=== PATIENT | female | born 1990 | race Caucasian/White ===

== ENCOUNTER 2016-10-27 08:18 | Emergency (ER) | payer MEDICAID ==
[2016-10-27 08:34] LABS: Glucose,Whole Blood 94 mg/dL (75-99)
[2016-10-27] MEDS ORDERED: SODIUM CHLORIDE 0.9% 1,000 ML IV STA (08:43)
--- NOTE | 2016-10-27 08:57 | ED ---
General Adult HPI - General Chief complaint: Urogenital Stated complaint: back pain, nausea Time Seen by Provider: 10/27/16 08:38 Source: patient, RN notes reviewed Mode of arrival: ambulatory Limitations: no limitations - History of Present Illness Initial comments: Patient is a 26-year-old female who presents emergency room today with a chief complaint of hematuria. She does admit that she noticed small amount yesterday. States that she has had increased bleeding today's had a wear a pad. States she went to urgent care today urinalysis and was advised coming here to the emergency room for further evaluation. She does admit that she's felt somewhat lightheaded dizzy at times. She denies any other complaints or symptoms. Patient denies any recent fever, chills, shortness of breath, chest pain, back pain, abdominal pain, nausea or vomiting, numbness or tingling, dysuria, constipation or diarrhea, headaches or visual changes, or any other complaints. Review of Systems ROS Statement: Those systems with pertinent positive or pertinent negative responses have been documented in the HPI. ROS Other: All systems not noted in ROS Statement are negative. Past Medical History History of Any Multi-Drug Resistant Organisms: None Reported Past Surgical History: Back Surgery Past Psychological History: No Psychological Hx Reported Smoking Status: Never smoker Past Alcohol Use History: None Reported Past Drug Use History: None Reported General Exam - General Exam Comments Initial Comments: General: The patient is awake and alert, in no distress, and does not appear acutely ill. Eye: Pupils are equal, round and reactive to light, extra-ocular movements are intact. No nystagmus. There is normal conjunctiva bilaterally. No signs of icterus. Ears, nose, mouth and throat: There are moist mucous membranes and no oral lesions. Neck: The neck is supple, there is no tenderness or JVD. Cardiovascular: There is a regular rate and rhythm. No murmur, rub or gallop is appreciated. Respiratory: Lungs are clear to auscultation, respirations are non-labored, breath sounds are equal. No wheezes, stridor, rales, or rhonchi. Gastrointestinal: Soft, non-distended, non-tender abdomen without masses or organomegaly noted. There is no rebound or guarding present. No CVA tenderness. Bowel sounds are unremarkable. Musculoskeletal: Normal ROM, no tenderness. Strength 5/5. Sensation intact. Pulses equal bilaterally 2+. Neurological: A&O x 3. CN II-XII intact, There are no obvious motor or sensory deficits. Coordination appears grossly intact. Speech is normal. Skin: Skin is warm and dry and no rashes or lesions are noted. Psychiatric: Cooperative, appropriate mood & affect, normal judgment. Limitations: no limitations Course Vital Signs 10/27/16 08:26 Temperature 97.8 F Pulse Rate 67 Respiratory 18 Rate Blood Pressure 139/79 O2 Sat by Pulse 100 Oximetry Medical Decision Making - Medical Decision Making Patient's urinalysis reviewed and does show 6 red cells no sign of infection. Negative test. Blood work unremarkable. Stable hemoglobin. Patient does admit to noticing some hematuria starting yesterday. Ultrasound performed of the kidneys bladder is unremarkable. Results were discussed the patient. Patient advised to follow-up with urologist. She admits that over the last month and a half she's had some increased frequency. Advised to return if any symptoms increase or worsen or for any other concerns. - Lab Data Result diagrams: 10/27/16 08:55 10/27/16 08:55 Lab Results 10/27/16 10/27/16 10/27/16 Range/Units 08:33 08:50 08:50 WBC (3.8-10.6) k/uL RBC (3.80-5.40) m/uL Hgb (11.4-16.0) gm/dL Hct (34.0-46.0) % MCV (80.0-100.0) fL MCH (25.0-35.0) pg MCHC (31.0-37.0) g/dL RDW (11.5-15.5) % Plt Count (150-450) k/uL Neutrophils % % Lymphocytes % % Monocytes % % Eosinophils % % Basophils % % Neutrophils # (1.3-7.7) k/uL Lymphocytes # (1.0-4.8) k/uL Monocytes # (0-1.0) k/uL Eosinophils # (0-0.7) k/uL Basophils # (0-0.2) k/uL Differential Comment Manual Slide Review RBC Morphology Sodium (137-145) mmol/L Potassium (3.5-5.1) mmol/L Chloride (98-107) mmol/L Carbon Dioxide (22-30) mmol/L Anion Gap mmol/L BUN (7-17) mg/dL Creatinine (0.52-1.04) mg/dL Est GFR (MDRD) Af Amer (>60 ml/min/1.73 sqM) Est GFR (MDRD) Non-Af (>60 ml/min/1.73 sqM) Glucose (74-99) mg/dL POC Glucose (mg/dL) 94 (75-99) mg/dL POC Glu Clinical Science Liaison ID PetitMarry santa Calcium (8.4-10.2) mg/dL Total Bilirubin (0.2-1.3) mg/dL AST (14-36) U/L ALT (9-52) U/L Alkaline Phosphatase (38-126) U/L Total Protein (6.3-8.2) g/dL Albumin (3.5-5.0) g/dL Urine Color Colorless Urine Appearance Clear (Clear) Urine pH 5.5 (5.0-8.0) Ur Specific [place] 1.004 (1.001-1.035) Urine Protein Negative (Negative) Urine Glucose (UA) Negative (Negative) Urine Ketones Negative (Negative) Urine Blood Moderate H (Negative) Urine Nitrite Negative (Negative) Urine Bilirubin Negative (Negative) Urine Urobilinogen <2.0 (<2.0) mg/dL Ur Leukocyte Esterase Negative (Negative) Urine RBC 6 H (0-5) /hpf Urine WBC <1 (0-5) /hpf Ur Squamous Epith Cells 1 (0-4) /hpf Urine Bacteria Rare H (None) /hpf Urine Mucus Rare H (None) /hpf Urine HCG, Qual Not Detected (Not Detectd) 10/27/16 10/27/16 Range/Units 08:55 08:55 WBC 5.3 (3.8-10.6) k/uL RBC 4.66 (3.80-5.40) m/uL Hgb 14.2 (11.4-16.0) gm/dL Hct 41.9 (34.0-46.0) % MCV 89.8 (80.0-100.0) fL MCH 30.5 (25.0-35.0) pg MCHC 34.0 (31.0-37.0) g/dL RDW 12.7 (11.5-15.5) % Plt Count 210 (150-450) k/uL Neutrophils % 36 % Lymphocytes % 54 % Monocytes % 5 % Eosinophils % 2 % Basophils % 1 % Neutrophils # 1.9 (1.3-7.7) k/uL Lymphocytes # 2.8 (1.0-4.8) k/uL Monocytes # 0.3 (0-1.0) k/uL Eosinophils # 0.1 (0-0.7) k/uL Basophils # 0.1 (0-0.2) k/uL Differential Comment Manual Slide Review Performed RBC Morphology Normal Sodium 142 (137-145) mmol/L Potassium 3.9 (3.5-5.1) mmol/L Chloride 106 (98-107) mmol/L Carbon Dioxide 26 (22-30) mmol/L Anion Gap 10 mmol/L BUN 14 (7-17) mg/dL Creatinine 0.71 (0.52-1.04) mg/dL Est GFR (MDRD) Af Amer >60 (>60 ml/min/1.73 sqM) Est GFR (MDRD) Non-Af >60 (>60 ml/min/1.73 sqM) Glucose 87 (74-99) mg/dL POC Glucose (mg/dL) (75-99) mg/dL POC Glu Clinical Science Liaison ID Calcium 9.5 (8.4-10.2) mg/dL Total Bilirubin 0.6 (0.2-1.3) mg/dL AST 62 H (14-36) U/L ALT 64 H (9-52) U/L Alkaline Phosphatase 56 (38-126) U/L Total Protein 7.8 (6.3-8.2) g/dL Albumin 4.5 (3.5-5.0) g/dL Urine Color Urine Appearance (Clear) Urine pH (5.0-8.0) Ur Specific [place] (1.001-1.035) Urine Protein (Negative) Urine Glucose (UA) (Negative) Urine Ketones (Negative) Urine Blood (Negative) Urine Nitrite (Negative) Urine Bilirubin (Negative) Urine Urobilinogen (<2.0) mg/dL Ur Leukocyte Esterase (Negative) Urine RBC (0-5) /hpf Urine WBC (0-5) /hpf Ur Squamous Epith Cells (0-4) /hpf Urine Bacteria (None) /hpf Urine Mucus (None) /hpf Urine HCG, Qual (Not Detectd) Disposition Clinical Impression: Hematuria Disposition: HOME SELF-CARE Condition: Good Instructions: Hematuria (ED) Additional Instructions: Please use medication as discussed. Please follow-up with urologist/family doctor in the next 2 days of symptoms have not improved. Please return to emergency room if the symptoms increase or worsen or for any other concerns. Referrals: Kimani Monsalve MD [Primary Care Provider] - 1-2 days Sacha Tellez MD [STAFF PHYSICIAN] - 1-2 days Time of Disposition: 10:12
[2016-10-27 09:03] LABS: Appearance,Urine Clear (Clear); Bacteria,Urine Rare /hpf; Bilirubin,Urine Negative (Negative); Glucose,Urine (UA) Negative (Negative); Ketones,Urine Negative (Negative); Leukocyte Esterase,Urine Negative (Negative); Mucus,Urine Rare /hpf; Nitrite,Urine Negative (Negative); PH, Urine 5.5 (5.0-8.0); Particle Count 1000; Protein,Urine Negative (Negative); RBC,Urine 6 /hpf (0-5); Specific Gravity,Urine 1.004 (1.001-1.035); Squamous Epithelial Cell,Urine 1 /hpf (0-4); UA Billing (MACRO vs. MICRO) MICRO; Urobilinogen,Urine <2.0 mg/dL (<2.0); WBC,Urine <1 /hpf (0-5)
[2016-10-27 09:08] LABS: Basophils # (A) 0.1 k/uL (0-0.2); Basophils % (A) 1 %; CH 31.1; CHCM 34.8; Eosinophils # (A) 0.1 k/uL (0-0.7); Eosinophils % (A) 2 %; HCT 41.9 % (34.0-46.0); HDW 2.33; HGB 14.2 gm/dL (11.4-16.0); Luc # (Auto) 0.13; Luc % (Auto) 2; Lymphocytes # (A) 2.8 k/uL (1.0-4.8); Lymphocytes % (A) 54 %; MCH 30.5 pg (25.0-35.0); MCV 89.8 fL (80.0-100.0); Mean Platelet Volume 7.2; Monocytes # (A) 0.3 k/uL (0-1.0); Monocytes % (A) 5 %; Neutrophils # (A) 1.9 k/uL (1.3-7.7); Neutrophils % (A) 36 %; RBC 4.66 m/uL (3.80-5.40); RDW 12.7 % (11.5-15.5); WBC 5.3 k/uL (3.8-10.6); WBC (Perox) 5.43
[2016-10-27 09:13] LABS: ALT 64 U/L (9-52); AST 62 U/L (14-36); Alkaline Phosphatase 56 U/L (38-126); Anion Gap 10 mmol/L; Blood Urea Nitrogen 14 mg/dL (7-17); Calcium 9.5 mg/dL (8.4-10.2); Carbon Dioxide 26 mmol/L (22-30); Chloride 106 mmol/L (98-107); Glucose 87 mg/dL (74-99); Non-African American GFR(MDRD) >60 (>60 ml/min/1.73 sqM); Potassium 3.9 mmol/L (3.5-5.1); Sodium 142 mmol/L (137-145); Total Bilirubin 0.6 mg/dL (0.2-1.3); Total Protein 7.8 g/dL (6.3-8.2)
[2016-10-27 09:25] LABS: Manual Review Performed
[2016-10-27 09:27] LABS: RBC Morphology Normal
--- NOTE | 2016-10-27 09:55 | US ---
EXAMINATION TYPE: US kidneys/renal and bladder DATE OF EXAM: 10/27/2016 COMPARISON: NONE CLINICAL HISTORY: Pain. Hematuria, urinary frequency EXAM MEASUREMENTS: Right Kidney: 10.5 x 4.1 x 3.7 cm Left Kidney: 10.6 x 4.9 x 4.5 cm Post Void Residual Volume: 32.5 mL Right Kidney: no evidence of hydronephrosis or mass Left Kidney: no evidence of hydronephrosis or mass Bladder: appears wnl Bilateral Jets seen: yes Normal Post Void Residual: yes There is no evidence for hydronephrosis at this point in time. No nephrolithiasis is seen. No jayleen s are identified. The urinary bladder is anechoic. Bilateral ureteral jets are seen on color Dopple r. No significant postvoid residual volume. Cortical medullary differentiation is maintained bilaterally . IMPRESSION: No significant abnormalities evident
[2016-10-27] MEDS ORDERED: ONDANSETRON 4 MG/2 ML VIAL IVP STA (10:11)
[2016-10-27 10:24] VITALS: BP 119/73; PULSE 56; RESP 16; TEMP 98.1
== END 2016-10-27 10:39 | disposition home or self-care (01) ==
LOC: EC 08:18
DX: R31.9 Hematuria, unspecified (principal); R42 Dizziness and giddiness; Z32.02 Encounter for pregnancy test, result negative
CPT/HCPCS: 36415; 93005; 80053; 85025; 81001; 81025; 87086; 76770; 99284; 96374; 96361; J2405

== ENCOUNTER 2017-08-08 08:39 | Emergency (ER) | payer MEDICAID ==
[2017-08-08 08:44] VITALS: PULSE 69
[2017-08-08] MEDS ORDERED: SODIUM CHLORIDE 0.9% 1,000 ML IV STA (09:04)
[2017-08-08] MEDS ORDERED: diphenhydrAMINE 50 MG/ML 1 ML VIAL IVP STA (09:04)
[2017-08-08] MEDS ORDERED: SODIUM CHLORIDE 0.9% 2,000 ML IV STA (09:04)
[2017-08-08] MEDS ORDERED: METOCLOPRAMIDE 5 MG/ML 2 ML VIAL IVP STA (09:04)
--- NOTE | 2017-08-08 09:11 | ED ---
Nausea/Vomiting/Diarrhea HPI - General Chief complaint: Nausea/Vomiting/Diarrhea Stated complaint: Vomiting Time Seen by Provider: 08/08/17 08:47 Source: patient, RN notes reviewed, old records reviewed Mode of arrival: ambulatory Limitations: no limitations - History of Present Illness Initial comments: This patient is a 26-year-old female chief complaint of nausea and vomiting for the past week. Patient is currently 8 weeks . She reports she's had an ultrasound to confirm a chain . She reports some mild epigastric pain due to the amount of vomiting. Patient reports no fever or chills. She states it was ensured able fasting. No changes in her bowel habits. Patient reports that she is feels very weak and dehydrated. She relates that she is unable to tolerate any fluids or food. She reports that she start PCP earlier in the week and was given Unisom and vitamin B6. Patient states that she can't even hold that down. Patient denies any other symptoms at this time. - Related Data Previous Rx's Medication Instructions Recorded Metoclopramide [Reglan] 5 mg PO ACHS #12 tab 08/08/17 Allergies Allergy/AdvReac Type Severity Reaction Status Date / Time clarithromycin [From Biaxin] Allergy Unknown Verified 08/08/17 10:45 pseudoephedrine Allergy Unknown Verified 08/08/17 10:45 [From Sudafed] Sulfa (Sulfonamide Allergy Unknown Verified 08/08/17 10:45 Antibiotics) Review of Systems ROS Statement: Those systems with pertinent positive or pertinent negative responses have been documented in the HPI. ROS Other: All systems not noted in ROS Statement are negative. Past Medical History Past Medical History: Asthma History of Any Multi-Drug Resistant Organisms: None Reported Past Surgical History: Back Surgery, Orthopedic Surgery Past Psychological History: No Psychological Hx Reported Smoking Status: Never smoker Past Alcohol Use History: None Reported Past Drug Use History: None Reported General Exam - General Exam Comments Initial Comments: This is a pleasant 26-year-old female. She did have one episode of vomiting while in the emergency department. Patient is alert and oriented. Does appear very tired and fatigued. Limitations: no limitations General appearance: alert, in no apparent distress Head exam: Present: atraumatic, normocephalic, normal inspection Eye exam: Present: normal appearance, PERRL, EOMI. Absent: scleral icterus, conjunctival injection, periorbital swelling ENT exam: Present: normal exam, mucous membranes dry, mucous membranes moist. Absent: normal oropharynx (Dry oropharynx) Neck exam: Present: normal inspection. Absent: tenderness, meningismus, lymphadenopathy Respiratory exam: Present: normal lung sounds bilaterally. Absent: respiratory distress, wheezes, rales, rhonchi, stridor Cardiovascular Exam: Present: regular rate, normal rhythm, normal heart sounds. Absent: systolic murmur, diastolic murmur, rubs, gallop, clicks GI/Abdominal exam: Present: soft, tenderness (epigastric), normal bowel sounds. Absent: distended, guarding, rebound, rigid Extremities exam: Present: normal inspection, full ROM, normal capillary refill. Absent: tenderness, pedal edema, joint swelling, calf tenderness Back exam: Present: normal inspection Neurological exam: Present: alert, oriented X3, CN II-XII intact Psychiatric exam: Present: normal affect, normal mood Skin exam: Present: warm, dry, intact, normal color. Absent: rash Course Vital Signs 08/08/17 08:42 Temperature 97.7 F Pulse Rate 69 Respiratory 20 Rate Blood Pressure 114/61 O2 Sat by Pulse 100 Oximetry Medical Decision Making - Medical Decision Making This patient is a pleasant 26-year-old female currently 8 weeks presents today with chief complaint of vomiting for the past 6 days. She states that she's not been able to tolerate her Unisom and vitamin B6 due to the amount of vomiting. She reports that she had a ultrasound which confirmed intrauterine . She denies any significant abdominal pain this time. She does report some epigastric tenderness due to the amount of vomiting. Patient otherwise denies any other symptoms. She was given 2 L of IV fluids and lab work obtained. Patient's labwork was reviewed and unremarkable. Ultrasound shows a viable IUP measuring 7 weeks and 3 days. She denies any vaginal bleeding or discharge. No cough pain process seen on the ultrasound. At this time I'll discharge the patient after receiving the liters of fluid with prescription for Reglan for nausea. Return to emergency department if any alarming signs or symptoms occur. All questions were answered and return parameters were discussed. - Lab Data Result diagrams: 08/08/17 09:29 08/08/17 09:29 Lab Results 08/08/17 08/08/17 08/08/17 Range/Units 09:29 09:29 10:15 WBC 7.5 (3.8-10.6) k/uL RBC 4.98 (3.80-5.40) m/uL Hgb 14.8 (11.4-16.0) gm/dL Hct 43.7 (34.0-46.0) % MCV 87.7 (80.0-100.0) fL MCH 29.7 (25.0-35.0) pg MCHC 33.8 (31.0-37.0) g/dL RDW 12.4 (11.5-15.5) % Plt Count 224 (150-450) k/uL Neutrophils % 75 % Lymphocytes % 17 % Monocytes % 5 % Eosinophils % 1 % Basophils % 0 % Neutrophils # 5.6 (1.3-7.7) k/uL Lymphocytes # 1.3 (1.0-4.8) k/uL Monocytes # 0.4 (0-1.0) k/uL Eosinophils # 0.1 (0-0.7) k/uL Basophils # 0.0 (0-0.2) k/uL Sodium 139 (137-145) mmol/L Potassium 4.0 (3.5-5.1) mmol/L Chloride 103 (98-107) mmol/L Carbon Dioxide 23 (22-30) mmol/L Anion Gap 13 mmol/L BUN 8 (7-17) mg/dL Creatinine 0.64 (0.52-1.04) mg/dL Est GFR (CKD-EPI)AfAm >90 (>60 ml/min/1.73 sqM) Est GFR (CKD-EPI)NonAf >90 (>60 ml/min/1.73 sqM) Glucose 86 (74-99) mg/dL Calcium 9.6 (8.4-10.2) mg/dL Total Bilirubin 0.8 (0.2-1.3) mg/dL AST 16 (14-36) U/L ALT 20 (9-52) U/L Alkaline Phosphatase 65 (38-126) U/L Total Protein 7.6 (6.3-8.2) g/dL Albumin 4.3 (3.5-5.0) g/dL Amylase 53 (30-110) U/L Lipase 47 (23-300) U/L Urine Color Yellow Urine Appearance Cloudy H (Clear) Urine pH 5.5 (5.0-8.0) Ur Specific [place] 1.013 (1.001-1.035) Urine Protein Negative (Negative) Urine Glucose (UA) Negative (Negative) Urine Ketones 2+ H (Negative) Urine Blood Negative (Negative) Urine Nitrite Negative (Negative) Urine Bilirubin Negative (Negative) Urine Urobilinogen <2.0 (<2.0) mg/dL Ur Leukocyte Esterase Large H (Negative) Urine RBC 2 (0-5) /hpf Urine WBC 14 H (0-5) /hpf Ur Squamous Epith Cells 3 (0-4) /hpf Urine Bacteria Rare H (None) /hpf Urine Mucus Occasional H (None) /hpf - Radiology Data Radiology results: report reviewed Single IUP gestation is confirmed. Martinez-rump length is 1.3 cm corresponding to 7 weeks and 3-day-old fetus. No EVIDENCE FOR COMPLICATIONS AT THIS TIME. Disposition Clinical Impression: Dehydration, Nausea/vomiting in Disposition: HOME SELF-CARE Condition: Good Instructions: Acute Nausea and Vomiting (ED) Additional Instructions: Patient denies to rest, increase her fluid intake. Take the medication as prescribed. Return to emergency department if any alarming signs or symptoms occur. Prescriptions: Metoclopramide [Reglan] 5 mg PO ACHS #12 tab Referrals: None,Stated [Primary Care Provider] - 1-2 days Time of Disposition: 11:36
[2017-08-08 09:40] LABS: Basophils % (A) 0 %; Eosinophils # (A) 0.1 k/uL (0-0.7); Eosinophils % (A) 1 %; HCT 43.7 % (34.0-46.0); HGB 14.8 gm/dL (11.4-16.0); Lymphocytes # (A) 1.3 k/uL (1.0-4.8); Lymphocytes % (A) 17 %; MCH 29.7 pg (25.0-35.0); MCHC 33.8 g/dL (31.0-37.0); MCV 87.7 fL (80.0-100.0); Mean Platelet Volume 7.7; Monocytes # (A) 0.4 k/uL (0-1.0); Monocytes % (A) 5 %; Neutrophils # (A) 5.6 k/uL (1.3-7.7); Neutrophils % (A) 75 %; Platelet Count 224 k/uL (150-450); RBC 4.98 m/uL (3.80-5.40); RDW 12.4 % (11.5-15.5); WBC 7.5 k/uL (3.8-10.6)
[2017-08-08 10:14] LABS: ALT 20 U/L (9-52); AST 16 U/L (14-36); Albumin 4.3 g/dL (3.5-5.0); Alkaline Phosphatase 65 U/L (38-126); Amylase 53 U/L (30-110); Anion Gap 13 mmol/L; Blood Urea Nitrogen 8 mg/dL (7-17); Calcium 9.6 mg/dL (8.4-10.2); Carbon Dioxide 23 mmol/L (22-30); Chloride 103 mmol/L (98-107); Glucose 86 mg/dL (74-99); Lipase 47 U/L (23-300); Sodium 139 mmol/L (137-145); Total Bilirubin 0.8 mg/dL (0.2-1.3); Total Protein 7.6 g/dL (6.3-8.2)
--- NOTE | 2017-08-08 10:24 | US ---
EXAMINATION TYPE: US OB <= 14 wk fetus DATE OF EXAM: 08/08/2017 COMPARISON: NONE CLINICAL HISTORY: Pain. Abdomen pain and N/v x 6 days EXAM PERFORMED: Transabdominal (TA) EXAM MEASUREMENTS: GESTATIONAL AGE / DATING Physician Established: (8 weeks/5 days) EDC: 03/15/2018 Dates by LMP: (8 weeks/5 days) EDC: 03/15/2018 Dates by First Scan: This is 1st scan Dates by Current Scan for: ( 7 weeks/3 days) EDC: 03/24/2018 MATERNAL ANATOMY Uterus: 9.5 x 5.5 x 6.6cm, anteverted Right Ovary: 3.0 x 2.2 x 1.6cm Left Ovary: 2.4 x 1.5 x 2.1cm Post CDS / Adnexa: wnl Presence of free fluid: no Presence of corpus luteal cyst: not seen at this time Presence of subchorionic bleed: no GESTATION / SURVEY CRL: 1.3cm (7 weeks/3 days) Yolk Sac (normal less than 6mm): 3.4mm Heart Rate: 139 bpm Rhythm: Normal IUP: Viable IUP Date of LMP: 06/08/2017 Beta HcG (if available): Not available at time of exam Single live intrauterine gestation is confirmed as gestational sac, yolk sac, and pole are iden tified. No free fluid is seen in pelvic cul-de-sac. Both ovaries are present. There is no suspicious extraovarian adnexal lesion seen bilaterally. IMPRESSION: Single live intrauterine gestation is confirmed, mean crown-rump length is 1.3 cm corresponding to 7 week 3 day old fetus. No ultrasound evidence for complication at this time.
[2017-08-08 10:41] LABS: Appearance,Urine Cloudy (Clear); Bacteria,Urine Rare /hpf; Bilirubin,Urine Negative (Negative); Blood,Urine Negative (Negative); Color,Urine Yellow; Glucose,Urine (UA) Negative (Negative); Ketones,Urine 2+ (Negative); Leukocyte Esterase,Urine Large (Negative); Mucus,Urine Occasional /hpf; Nitrite,Urine Negative (Negative); PH, Urine 5.5 (5.0-8.0); Protein,Urine Negative (Negative); RBC,Urine 2 /hpf (0-5); Specific Gravity,Urine 1.013 (1.001-1.035); Squamous Epithelial Cell,Urine 3 /hpf (0-4); Urobilinogen,Urine <2.0 mg/dL (<2.0); WBC,Urine 14 /hpf (0-5)
[2017-08-08 11:44] VITALS: BP 106/52; RESP 17; TEMP 98.3
== END 2017-08-08 11:55 | disposition home or self-care (01) ==
LOC: EC 08:39
DX: O99.281 Endocrine, nutritional and metabolic diseases complicating pregnancy, first trimester (principal); E86.0 Dehydration; O21.9 Vomiting of pregnancy, unspecified; Z88.1 Allergy status to other antibiotic agents; Z88.2 Allergy status to sulfonamides; Z88.8 Allergy status to other drugs, medicaments and biological substances; Z3A.01 Less than 8 weeks gestation of pregnancy
CPT/HCPCS: 36415; 80053; 82150; 83690; 85025; 81001; 76801; 99284; 96374; 96375; 96361 ×2; J1200; J2765

== ENCOUNTER → 2017-08-27 | Outpatient (CLI) | payer MEDICAID ==
[2017-08-27 12:49] LABS: HCT 39.3 % (34.0-46.0); MCHC 35.6 g/dL (31.0-37.0); MCV 87.1 fL (80.0-100.0); Mean Platelet Volume 7.5; Platelet Count 201 k/uL (150-450); RBC 4.52 m/uL (3.80-5.40); RDW 12.3 % (11.5-15.5); WBC 6.3 k/uL (3.8-10.6)
[2017-08-27 13:12] LABS: Glucose 78 mg/dL (74-99)
[2017-08-27 20:43] LABS: HIV AB P24 Non-Reactive (Non-Reactive); HIV P24 AG Non-Reactive (Non-Reactive)
== END | disposition home or self-care (01) ==
LOC: LABWHC1 12:04
PROVIDERS: ATTEND Obstetrics & Gynecology
DX: O26.811 Pregnancy related exhaustion and fatigue, first trimester (principal); Z3A.00 Weeks of gestation of pregnancy not specified
CPT/HCPCS: 36415; 82565; 82947; 85027; 86762; 86780; 86850; 86900; 86901; 87340; 87390

== ENCOUNTER → 2017-11-05 | Outpatient (CLI) | payer MEDICAID ==
--- NOTE | 2017-11-05 15:17 | US ---
EXAMINATION TYPE: US OB anatomy transabd DATE OF EXAM: 11/05/2017 COMPARISON: HISTORY: O36.62X0 Large for dates 2nd trimester Anatomy TECHNIQUE: Transabdominal (TA) EXAM MEASUREMENTS: GESTATIONAL AGE / DATING Dates by First Scan: (20weeks/1 days) EDC: 03/24/2018 Dates by Current Scan for: (20weeks/0 days) EDC: 03/25/2018 SURVEY IUP: Single PLACENTA: Posterior PREVIA: No previa MATHEW: 11.1 Normal CERVICAL LENGTH (transabdominal: norm > 3.0cm): 3.3m BIOMETRY PRESENTATION: Variable LIE: Transverse lie with head maternal Right BPD: 4.5m 19weeks / 5 days HC: 17.1 19weeks / 5 days AC: 15.2 20weeks / 3 days FL: 3.2m 20weeks / 0 days ESTIMATED WEIGHT IN GRAMS: 334rams ESTIMATED WEIGHT IN LBS/OZ: 0 lbs. 12oz. WEIGHT PERCENTAGE BASED ON ESTABLISHED DATE: 45% HC/AC:1.1Normal HEART RATE: 150 bpm RHYTHM: Normal ANATOMY SEEN (within normal limits): * Lateral Vent (< 1 cm) 0.5 cm * Cisterna Magna (< 1.1 cm) 0.5 cm * Nuchal Fold (< 0.6 cm) 0.3 cm * Cerebellum (varies with age) 1.9 cm Choroid Plexus (bilateral) Midline Falx Cavus Septi Pellucidi Four Chamber Heart Outflow tracts: LVOT/RVOT Stomach Situs Nose / Lips Diaphragm Kidneys (bilateral) Bladder Cord Insert Three Vessel Cord Longitudinal Spine Transverse Spine Arms (bilateral) Legs (bilateral) ANATOMY SEEN (does not appear within normal limits): Placental lakes seen Single live IUP measuring 20 weeks 0 days. IMPRESSION: 1. Single intrauterine gestation estimated at 20 weeks 0 days gestation based on the current ultrasou nd measurements. This would have a calculated EDC of 03/25/2018. 2. Cardiac activity measures 150 bpm.
[2017-11-06 10:43] LABS: Alpha Fetoprotein (M.O.M) 1.65; B-HCG (M.O.M.) 0.81; Gestational Age (days) 1; Human Chorionic Gonadotropin 16.3 IU/mL; Inhibin A (M.O.M.) 0.61; Maternal Age at EDD (Yrs) 25; Smoker No; Unconjugated Estriol (M.O.M.) 1.16
== END | disposition home or self-care (01) ==
LOC: RADUSWWP 13:26
PROVIDERS: ATTEND Obstetrics & Gynecology
DX: O36.62X0 Maternal care for excessive fetal growth, second trimester, not applicable or unspecified (principal); Z3A.20 20 weeks gestation of pregnancy
CPT/HCPCS: 36415; 76811; 82105; 82677; 84702; 86336

== ENCOUNTER → 2017-12-07 | Outpatient (CLI) | payer MEDICAID ==
[2017-12-07 08:30] LABS: HGB 13.3 gm/dL (11.4-16.0); MCH 31.5 pg (25.0-35.0); MCHC 34.2 g/dL (31.0-37.0); MCV 92.1 fL (80.0-100.0); Mean Platelet Volume 7.1; Platelet Count 206 k/uL (150-450); RBC 4.23 m/uL (3.80-5.40); RDW 13.4 % (11.5-15.5); WBC 7.1 k/uL (3.8-10.6)
== END | disposition home or self-care (01) ==
LOC: LABWHC1 07:16
PROVIDERS: ATTEND Obstetrics & Gynecology
DX: Z34.82 Encounter for supervision of other normal pregnancy, second trimester (principal)
CPT/HCPCS: 36415; 82950; 85027

== ENCOUNTER → 2018-02-19 | Outpatient (CLI) | payer MEDICAID ==
--- NOTE | 2018-02-21 10:13 | US ---
EXAMINATION TYPE: US OB >= 14 wk fetus DATE OF EXAM: 02/19/2018 COMPARISON: US 11/05/2017 CLINICAL HISTORY: O36.63XO Large For DatesGrowth TECHNIQUE: Transabdominal (TA) GESTATIONAL AGE / DATING Physician Established: (35 weeks/2 days) EDC: 03/24/2018 Dates by Current Scan: (35 weeks/0 days) EDC: 03/26/2018 SURVEY IUP: Single PLACENTA: Posterior PREVIA: No Previa MATHEW: 13.2 cm Normal CERVICAL LENGTH (transabdominal: norm > 3.0cm): 3.1 cm BIOMETRY PRESENTATION: Vertex BPD: 8.6 cm 34 weeks / 5 days HC: 31.4 cm 35 weeks / 2 days AC: 31.5 cm 35 weeks / 4 days FL: 6.6 cm 34 weeks / 0 days ESTIMATED WEIGHT IN GRAMS: 2555 grams ESTIMATED WEIGHT IN LBS/OZ: 5 lbs. 10 oz. WEIGHT PERCENTAGE BASED ON ESTABLISHED DATES: 38% HC/AC: 1.0 Normal FL/AC: 21% Normal HEART RATE: 138 bpm RHYTHM: Normal ANATOMY NOT SEEN due to advanced maternal age: Kidneys (bilateral) * Lateral Vent (< 1 cm) * Cisterna Magna (< 1.1 cm) * Nuchal Fold (< 0.6 cm) * Cerebellum (varies with age) Choroid Plexus (bilateral) Midline Falx Cavus Septi Pellucidi Four Chamber Heart Outflow tracts:? LVOT/RVOT Cord Insert Longitudinal Spine Transverse Spine Arms (bilateral) Legs (bilateral) Situs Stomach Nose / Lips Diaphragm Bladder Three Vessel Cord Viable IUP, measurements consistent with dates. IMPRESSION: 1. Limited assessment of the anatomy due to advanced gestational age demonstrates a viable intr auterine 35 weeks 0 days and an EDC of 03/26/2018. Estimated weight is 5 lbs. 10 oz. Note this estimated weight is only approximation.
== END | disposition home or self-care (01) ==
LOC: RADUSWWP 14:52
PROVIDERS: ATTEND Obstetrics & Gynecology
DX: O36.63X0 Maternal care for excessive fetal growth, third trimester, not applicable or unspecified (principal); Z3A.35 35 weeks gestation of pregnancy
CPT/HCPCS: 76805

== ENCOUNTER 2018-02-24 02:00 | Outpatient (CLI) | payer MEDICAID ==
[2018-02-24 03:10] VITALS: BP 121/73; PULSE 92; RESP 16; TEMP 97.9
--- NOTE | 2018-03-13 09:39 | P.MSEPDOC ---
Presenting Problems - Arrival Data Date of Arrival on Unit: 02/24/18 Time of Arrival on Unit: 02:00 Mode of Transport: Ambulatory Vital Signs - Temperature Temperature: 97.9 F Temperature Source: Temporal Artery Scan - Pulse Right Brachial Pulse Rate: 92 Pulse Assessment Method: Automatic Cuff - Respirations Respiratory Rate: 16 Oxygen Delivery Method: Room Air O2 Sat by Pulse Oximetry: 100 - Blood Pressure Right Arm Blood Pressure: 121/73 Blood Pressure Mean: 89 Blood Pressure Source: Automatic Cuff Medical Screen Scoring (Post) - Cervical Exam Dilation: 1-3 cm = 1 Effacement: More than 50% = 2 Membranes: Intact - Uterine Contractions Frequency: > 5 minutes apart = 1 Duration: > 40 seconds = 2 Intensity: N/A - Maternal Vital Signs Maternal Temperature: N/A - Pain Assessment Pain Scale Used: Numeric (1 - 10) Pain Intensity: 0 - Assessment Heart Rate: 125 Heart Rate - NICHD Category: Category I (Normal) = 0 NST: Reactive Position: N/A Station: N/A - Total Score Total Score (Post): 6 - Post Treatment Level of Risk Post Treatment Level of Risk: Medium (6-9) Physician Notification (Post) - Physician Notified Physician Notified Date: 02/24/18 Physician Notified Time: 03:20 Spoke With: Timi - Notification Comment Comment: D/c home if no cervical change after additional hour. Disposition - Disposition OB Disposition: Discharge to home, Written follow up instructions reviewed Discharge Date: 02/24/18 Discharge Time: 04:30 I agree with the RN Medical Screening Exam: Yes Risk & Benefit of care provided described in d/c instruction: Yes Diagnosis: FALSE LABOR, UNSPECIFIED
== END 2018-02-24 04:25 | disposition home or self-care (01) ==
LOC: FBPOP 02:00
PROVIDERS: ATTEND Obstetrics & Gynecology
DX: O47.9 False labor, unspecified (principal); Z3A.00 Weeks of gestation of pregnancy not specified
CPT/HCPCS: 59025; 84112; 99213

== ENCOUNTER 2018-03-08 18:51 | Outpatient (CLI) | payer MEDICAID ==
[2018-03-08 19:45] VITALS: BP 122/79; PULSE 112; RESP 16; TEMP 97.2
--- NOTE | 2018-03-09 09:31 | P.MSEPDOC ---
Presenting Problems - Arrival Data Date of Arrival on Unit: 03/08/18 Time of Arrival on Unit: 18:43 Mode of Transport: Ambulatory - Complaint OB-Reason for Admission/Chief Complaint: Rule Out PROM Comment: 1700 Medical History - Information : 1 Para: 0 Term: 0 : 0 Abortions: Spontaneous or Elective: 0 Number of Living Children: 0 - Gestational Age Gestational Age by KENNEDY (wks/days): 37 Weeks and 5 Days Review of Systems - Review of Systems Constitutional: No problems Breast: No problems ENT: No problems Cardiovascular: No problems Respiratory: No problems Gastrointestinal: No problems Genitourinary: No problems Musculoskeletal: No problems Neurological: No problems Skin: No problems Vital Signs - Temperature Temperature: 97.2 F Temperature Source: Temporal Artery Scan - Pulse Right Brachial Pulse Rate: 112 Pulse Assessment Method: Automatic Cuff - Respirations Respiratory Rate: 16 Oxygen Delivery Method: Room Air - Blood Pressure Right Arm Blood Pressure: 122/79 Blood Pressure Mean: 93 Blood Pressure Source: Automatic Cuff Medical Screen Scoring (Pre) - Cervical Exam Dilation: 1-3 cm = 1 Membranes: Intact - Uterine Contractions Frequency: > 5 minutes apart = 1 Duration: > 40 seconds = 2 - Maternal Vital Signs Maternal Temperature: N/A Maternal Blood Pressure: N/A Signs of Preeclampsia: N/A Maternal Respirations: N/A - Pain Assessment Pain Scale Used: Numeric (1 - 10) Pain Intensity: 0 - Maternal Trauma Maternal Trauma: N/A - Assessment Baseline FHR: 135 Heart Rate - NICHD Category: Category I (Normal) = 0 NST: Reactive Position: N/A Station: N/A - Total Score Total Score (Pre): 4 - Level of Risk Level of Risk: Low (0-5) Physician Notification (Post) - Physician Notified Physician Notified Date: 03/08/18 Physician Notified Time: 19:15 Spoke With: KOTA Hicks Order Received: Yes (Discharge) - Notification Comment Comment: amnisure negative, irregular contractions, not feeling pain, working on [employer] tonight, instruct to come back if leaking Disposition - Disposition OB Disposition: Discharge to home Discharge Date: 03/08/18 Discharge Time: 19:17 I agree with the RN Medical Screening Exam: Yes Risk & Benefit of care provided described in d/c instruction: Yes Diagnosis: FALSE LABOR AT OR AFTER 37 COMPLETED WEEKS OF GESTATION
== END 2018-03-08 19:17 | disposition home or self-care (01) ==
LOC: FBPOP 18:51
PROVIDERS: ATTEND Obstetrics & Gynecology
DX: O47.1 False labor at or after 37 completed weeks of gestation (principal); Z3A.37 37 weeks gestation of pregnancy
CPT/HCPCS: 59025; 99213

== ENCOUNTER 2018-03-17 15:35 | Outpatient (CLI) | payer MEDICAID ==
[2018-03-17 16:18] LABS: Appearance,Urine Cloudy (Clear); Bacteria,Urine Rare /hpf; Bilirubin,Urine Negative (Negative); Blood,Urine Negative (Negative); Color,Urine Light Yellow; Glucose,Urine (UA) Negative (Negative); Ketones,Urine Negative (Negative); Leukocyte Esterase,Urine Small (Negative); Mucus,Urine Rare /hpf; Nitrite,Urine Negative (Negative); PH, Urine 5.5 (5.0-8.0); Protein,Urine Negative (Negative); RBC,Urine 2 /hpf (0-5); Squamous Epithelial Cell,Urine 7 /hpf (0-4); Urobilinogen,Urine <2.0 mg/dL (<2.0); WBC,Urine 8 /hpf (0-5)
[2018-03-17 16:20] LABS: Basophils % (A) 0 %; Eosinophils % (A) 0 %; HCT 42.1 % (34.0-46.0); HGB 13.8 gm/dL (11.4-16.0); Lymphocytes # (A) 1.6 k/uL (1.0-4.8); Lymphocytes % (A) 19 %; MCH 29.6 pg (25.0-35.0); MCHC 32.8 g/dL (31.0-37.0); MCV 90.2 fL (80.0-100.0); Mean Platelet Volume 8.5; Monocytes # (A) 0.3 k/uL (0-1.0); Monocytes % (A) 4 %; Neutrophils # (A) 6.4 k/uL (1.3-7.7); Neutrophils % (A) 76 %; Platelet Count 159 k/uL (150-450); RBC 4.67 m/uL (3.80-5.40); RDW 14.1 % (11.5-15.5); WBC 8.5 k/uL (3.8-10.6)
[2018-03-17 16:39] LABS: ALT 37 U/L (9-52); AST 30 U/L (14-36); Blood Urea Nitrogen 9 mg/dL (7-17); LDH 416 U/L (313-618); Uric Acid 5.1 mg/dL (3.7-7.4)
[2018-03-17 17:14] VITALS: BP 138/83; PULSE 65; RESP 18; TEMP 98.1
--- NOTE | 2018-04-02 08:28 | P.MSEPDOC ---
Presenting Problems - Arrival Data Date of Arrival on Unit: 03/17/18 Time of Arrival on Unit: 15:35 Mode of Transport: Ambulatory Vital Signs - Temperature Temperature: 98.1 F Temperature Source: Oral - Pulse Right Pulse Oximetery Pulse Rate: 65 Pulse Assessment Method: Pulse Oximetry - Respirations Respiratory Rate: 18 Oxygen Delivery Method: Room Air O2 Sat by Pulse Oximetry: 99 - Blood Pressure Right Arm Blood Pressure: 138/83 Blood Pressure Mean: 101 Blood Pressure Source: Automatic Cuff Medical Screen Scoring (Post) - Cervical Exam Dilation: Exam Deferred Effacement: Exam Deferred Membranes: Intact - Uterine Contractions Frequency: N/A, > 5 minutes apart = 1 Duration: > 40 seconds = 2 Intensity: N/A - Maternal Vital Signs Maternal Temperature: N/A Maternal Blood Pressure: N/A Signs of Preeclampsia: N/A Maternal Respirations: N/A - Pain Assessment Pain Location and Character: Head Pain Scale Used: Numeric (1 - 10) Pain Intensity: 5 Pain Description: *Acute, Aching Pain Radiation Location: none Pain Frequency: Constant Pain Duration: 7 Pain Duration Units: Days Pain Behavior: Vocalization Effects of Pain: none Pain Aggravating Factors: Changing Position Pharmacological Interventions: PRN Medication Non-Pharmacological Interventions: Reduce Environmental Stimuli - Maternal Trauma Maternal Trauma: N/A - Assessment Heart Rate: 130 Heart Rate - NICHD Category: Category I (Normal) = 0 NST: Reactive Position: N/A Station: N/A - Total Score Total Score (Post): 3 - Post Treatment Level of Risk Post Treatment Level of Risk: Low (0-5) Physician Notification (Post) - Physician Notified Physician Notified Date: 03/17/18 Physician Notified Time: 16:53 Physician/Practitioner Notified:: Dr Riojas Spoke With: Dr Riojas New Order Received: Yes - Notification Comment Comment: PIH workup done, all labwork and blood pressure within normal limits. pt discharged home. Disposition - Disposition OB Disposition: Discharge to home Discharge Date: 03/17/18 Discharge Time: 17:05 I agree with the RN Medical Screening Exam: Yes Risk & Benefit of care provided described in d/c instruction: Yes Diagnosis: EDEMA, UNSPECIFIED
== END 2018-03-17 17:05 | disposition home or self-care (01) ==
LOC: FBPOP 15:35
PROVIDERS: ATTEND Obstetrics & Gynecology
DX: O12.00 Gestational edema, unspecified trimester (principal); Z3A.00 Weeks of gestation of pregnancy not specified
CPT/HCPCS: 59025; 81001; 82565; 83615; 84450; 84460; 84520; 84550; 85025; 99215

== ENCOUNTER 2018-03-19 15:36 | Outpatient (CLI) | payer MEDICAID ==
[2018-03-19 16:43] VITALS: BP 122/75; PULSE 82; RESP 16; TEMP 98.8
--- NOTE | 2018-03-21 11:05 | P.MSEPDOC ---
Presenting Problems - Arrival Data Date of Arrival on Unit: 03/19/18 Time of Arrival on Unit: 15:36 Mode of Transport: Ambulatory - Complaint OB-Reason for Admission/Chief Complaint: Other Comment: pt here for 6lb weight gain this week, SOB, headache Medical History - Information : 1 Para: 0 Term: 0 : 0 Abortions: Spontaneous or Elective: 0 Number of Living Children: 0 - Gestational Age Gestational Age by KENNEDY (wks/days): 39 Weeks and 2 Days Review of Systems - Review of Systems Constitutional: Rapid weight gain Breast: No problems ENT: No problems Cardiovascular: No problems Respiratory: No problems Gastrointestinal: No problems Genitourinary: No problems Musculoskeletal: No problems Neurological: Dizziness Skin: No problems Vital Signs - Temperature Temperature: 98.8 F Temperature Source: Oral - Pulse Right Brachial Pulse Rate: 82 Pulse Assessment Method: Automatic Cuff - Respirations Respiratory Rate: 16 Oxygen Delivery Method: Room Air O2 Sat by Pulse Oximetry: 100 - Blood Pressure Right Arm Blood Pressure: 122/75 Blood Pressure Mean: 90 Blood Pressure Source: Automatic Cuff Medical Screen Scoring (Pre) - Cervical Exam Dilation: Exam Deferred Effacement: Exam Deferred - Uterine Contractions Frequency: N/A Duration: N/A Intensity: N/A - Maternal Vital Signs Maternal Temperature: N/A Maternal Blood Pressure: N/A Signs of Preeclampsia: Headache = 1, Visual Disturbance = 1, Epigastric Pain = 1 Maternal Respirations: N/A - Pain Assessment Pain Scale Used: Numeric (1 - 10) Pain Intensity: 0 Pain Management Goal: 0 Pain Behavior: None Exhibited - Maternal Trauma Maternal Trauma: N/A - Assessment Baseline FHR: 125 Heart Rate - NICHD Category: Category I (Normal) = 0 Position: N/A - Total Score Total Score (Pre): 3 - Level of Risk Level of Risk: Low (0-5) Physician Notification (Pre) - Physician Notified Physician Notified Date: 03/19/18 Physician Notified Time: 15:51 Physician/Practitioner Notifed:: Beulah Spoke With: Beulah New Order Received: Yes - Notification Comment Comment: pt may have PIH labs redrawn, then go to ER for evaluation for SOB. Pt had PIH labs here 2 days ago Disposition - Disposition OB Disposition: Discharge to home Discharge Date: 03/19/18 Discharge Time: 16:20 I agree with the RN Medical Screening Exam: Yes Risk & Benefit of care provided described in d/c instruction: Yes Diagnosis: SHORTNESS OF BREATH
== END 2018-03-19 16:20 | disposition home or self-care (01) ==
LOC: FBPOP 15:36
PROVIDERS: ATTEND Obstetrics & Gynecology
DX: O99.89 Other specified diseases and conditions complicating pregnancy, childbirth and the puerperium (principal); R06.02 Shortness of breath; Z3A.39 39 weeks gestation of pregnancy
CPT/HCPCS: 59025; 99215

== ENCOUNTER → 2018-03-25 | Outpatient (CLI) | payer MEDICAID ==
--- NOTE | 2018-03-25 15:28 | US ---
EXAMINATION TYPE: US OB >= 14 wk fetus DATE OF EXAM: 03/25/2018 COMPARISON: US CLINICAL HISTORY: Post Dates O48.0; G1; KENNEDY 03/24/2018 TECHNIQUE: Transabdominal (TA) GESTATIONAL AGE / DATING Physician Established: (40 weeks/1 day) EDC: 03/24/2018 Dates by LMP: (43 weeks/3 days) EDC: 03/15/2018 Dates by First Scan: (40 weeks/1 day) EDC: 03/24/2018 Dates by Current Scan: (37 weeks/3 days) EDC: 04/12/2018 Beta HCG (if available): NA SURVEY IUP: Single PLACENTA: Fundal posterior PREVIA: No Previa MATHEW: 15.1 cm Normal CERVICAL LENGTH (transabdominal: norm > 3.0cm): 4.2 cm BIOMETRY PRESENTATION: Vertex LIE: Longitudinal BPD: 8.9 cm 36 weeks / 0 days HC: 33.5 cm 38 weeks / 2 days AC: 35.0 cm 39 weeks / 0 days FL: 7.1 cm 36 weeks / 2 days ESTIMATED WEIGHT IN GRAMS: 3337.0 grams ESTIMATED WEIGHT IN LBS/OZ: 7 lbs. 6 oz. WEIGHT PERCENTAGE BASED ON ESTABLISHED DATES: 25.4% HC/AC: 0.96 Normal FL/AC: 20.17 Normal HEART RATE: 119 bpm RHYTHM: Normal Single, live IUP, 37 weeks/3 days, EDC: 04/12/2018 , HR 119bpm. IMPRESSION: Single live intrauterine with a calculated sonographic age of 37 weeks and 3 days and estim ated date of delivery of 04/12/2018 with heart rate of 119 and weight percentage based on established dates of 25.4%. Dates are discordant with the physician established dates of 40 weeks and 1 day and menstrual age of 43 weeks and 3 days.
== END | disposition home or self-care (01) ==
LOC: RADUSWWP 13:38
PROVIDERS: ATTEND Obstetrics & Gynecology
DX: O48.0 Post-term pregnancy (principal); Z3A.37 37 weeks gestation of pregnancy
CPT/HCPCS: 76805

== ENCOUNTER 2018-03-29 06:01 | Inpatient (IN) | payer MEDICAID ==
[2018-03-29] MEDS ORDERED: OXYTOCIN 10 UNIT/ML 1 ML VIAL IM PRN (06:25)
[2018-03-29] MEDS ORDERED: CARBOPROST TROMETHAMINE 250 MCG/ML 1 ML AMP IM PRN (06:25)
[2018-03-29] MEDS ORDERED: TERBUTALINE 1 MG/ML VIAL SQ PRN (06:25)
[2018-03-29] MEDS ORDERED: METHYLERGONOVINE 0.2 MG/ML 1 ML AMP IM PRN (06:25)
[2018-03-29] MEDS ORDERED: LIDOCAINE 0.5% (PF) 5 MG/ML (50 ML SDV) SQ PRN (06:25)
[2018-03-29] MEDS ORDERED: OXYTOCIN 20 UNITS/1000 ML NS 1,000 ML IV SCH ×2 (06:30→17:45)
[2018-03-29 07:04] LABS: Basophils % (A) 0 %; Eosinophils # (A) 0.1 k/uL (0-0.7); Eosinophils % (A) 1 %; HCT 42.6 % (34.0-46.0); HGB 14.3 gm/dL (11.4-16.0); Lymphocytes # (A) 2.1 k/uL (1.0-4.8); Lymphocytes % (A) 21 %; MCH 30.2 pg (25.0-35.0); MCHC 33.7 g/dL (31.0-37.0); MCV 89.6 fL (80.0-100.0); Mean Platelet Volume 8.8; Monocytes # (A) 0.5 k/uL (0-1.0); Monocytes % (A) 5 %; Neutrophils # (A) 7.3 k/uL (1.3-7.7); Neutrophils % (A) 72 %; Platelet Count 193 k/uL (150-450); RBC 4.75 m/uL (3.80-5.40); RDW 14.4 % (11.5-15.5); WBC 10.2 k/uL (3.8-10.6)
[2018-03-29] MEDS: LACTATED RINGERS 1,000 ML IV SCH ×3 (07:36→11:44)
[2018-03-29] MEDS ORDERED: ROPIVACAINE 100 MG, fentaNYL (PF) 200 MCG in SODIUM CHLORIDE 0.9% 76 ML EPIDURAL ONE (10:02)
--- NOTE | 2018-03-29 17:34 | P.HPOB ---
History of Present Illness H&P Date: 03/29/18 Chief Complaint: Induction of Labor 27-year-old presents at 40 weeks and 5 days for induction of labor. Her cervix is 3 cm dilated, 80% effaced, -2 station. She is alyse irregularly. heart tones 110-115 with moderate variability and reactive. Review of Systems All systems: negative Constitutional: Denies chills, Denies fever Eyes: denies blurred vision, denies pain Ears, nose, mouth and throat: Denies headache, Denies sore throat Cardiovascular: Denies chest pain, Denies shortness of breath Respiratory: Denies cough Gastrointestinal: Denies abdominal pain, Denies diarrhea, Denies nausea, Denies vomiting Genitourinary: Denies dysuria, Denies hematuria Musculoskeletal: Denies myalgias Integumentary: Denies pruritus, Denies rash Neurological: Denies numbness, Denies weakness Psychiatric: Denies anxiety, Denies depression Endocrine: Denies fatigue, Denies weight change Past Medical History Past Medical History: Asthma Additional Past Medical History / Comment(s): Obstetric history: This is her first . She's had care with me since the first trimester. Her blood type is A+, antibodies negative, rubella nonimmune, uneffaced B-, GBS negative, HIV nonreactive. 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 Past Anesthesia/Blood Transfusion Reactions: No Reported Reaction Past Psychological History: No Psychological Hx Reported Smoking Status: Never smoker Past Alcohol Use History: Occasional Past Drug Use History: None Reported - Past Family History Mother Family Medical History: Cancer, Diabetes Mellitus Additional Family Medical History / Comment(s): PPH mother and great grandmother. Colon and cervical cancer. Medications and Allergies Home Medications Medication Instructions Recorded Confirmed Type Nmc-Skgc-Mesgw Acid 1 cap PO DAILY 09/11/17 03/29/18 History [-U Capsule (formulary)] Allergies Allergy/AdvReac Type Severity Reaction Status Date / Time clarithromycin [From Biaxin] Allergy Rash/Hives Verified 03/19/18 15:53 pseudoephedrine Allergy Rash/Hives Verified 03/19/18 15:53 [From Sudafed] Sulfa (Sulfonamide Allergy Unknown Verified 03/19/18 15:53 Antibiotics) sulfamethoxazole Allergy Rash/Hives Verified 03/19/18 15:53 [From Bactrim] trimethoprim [From Bactrim] Allergy Rash/Hives Verified 03/19/18 15:53 Exam Osteopathic Statement: *. No significant issues noted on an osteopathic structural exam other than those noted in the History and Physical/Consult. Vital Signs Temp Pulse Resp BP 03/29/18 06:24 97.5 F L 60 16 114/81 Intake and Output 03/29/18 03/29/18 03/29/18 06:59 14:59 22:59 Output Total 50 Balance -50 Output: Urine 50 Other: # Voids 1 Weight 79.379 kg Heart: Regular rate and rhythm Lungs: Clear to auscultation bilaterally Abdomen: Soft, nontender Extremities: Negative Homans sign Results Result Diagrams: 03/29/18 06:40 Assessment and Plan (1) Normal labor Current Visit: Yes Status: Acute Code(s): O80 - ENCOUNTER FOR FULL-TERM UNCOMPLICATED DELIVERY; Z37.9 - OUTCOME OF DELIVERY, UNSPECIFIED SNOMED Code(s ): 81093210 Plan: 1. Induction of labor with amniotomy and Pitocin 2. Anticipate normal vaginal delivery
--- NOTE | 2018-03-29 17:37 | P.PROBDLV ---
Vaginal Delivery Note - . Vaginal Delivery Note: 27-year-old presented at 40 weeks and 5 days for induction of labor. Her cervix was 3 cm dilated, 80% effaced, and -2 station. She is alyse irregularly. heart tones 110-115 with moderate variability and reactive. Amniotomy was performed at 7:52 AM, clear fluid noted. Pitocin had been started. When the patient was uncomfortable and 4 cm she did get an epidural. Her cervix was completely dilated around 4:00. She pushed, and delivered a viable female infant over intact perineum under epidural anesthesia at 1700. Head delivered OA, nuchal cord 1 easily reduced, anterior shoulder which was the left shoulder delivered gentle downward guidance followed by posterior shoulder and rest of body. Nose and mouth bulb suctioned, cord clamped and cut , placed on mother's abdomen. Placenta delivered spontaneously, intact with three-vessel cord at 1703. Vagina, cervix, perineum were inspected. Fourth degree midline laceration was repaired with 4-0, 3-0, and 2-0 Vicryl. EBL 200 mL. Mother and baby in stable condition.
[2018-03-29] MEDS ORDERED: ZOLPIDEM 5 MG TAB PO PRN (17:38)
[2018-03-29] MEDS ORDERED: diphenhydrAMINE 50 MG CAP PO PRN (17:38)
[2018-03-29] MEDS ORDERED: BENZOCAINE/MENTHOL SPRAY 1 GM/SPRAY AEROSOL TOPICAL PRN (17:38)
[2018-03-29] MEDS ORDERED: WITCH HAZEL 1 EACH MED..PAD TOPICAL PRN (17:38)
[2018-03-29] MEDS ORDERED: diphenhydrAMINE 50 MG/ML 1 ML VIAL IVP PRN ×2 (17:38)
[2018-03-29] MEDS ORDERED: HYDROCORTISONE 2.5% RECTAL CREAM 30 GM TUBE RECTAL PRN (17:38)
[2018-03-29] MEDS ORDERED: diphenhydrAMINE 25 MG CAP PO PRN (17:38)
[2018-03-29] MEDS ORDERED: SIMETHICONE 80 MG CHEWABLE PO PRN (17:38)
[2018-03-29] MEDS ORDERED: LANOLIN CREAM 5 GM TUBE TOPICAL PRN (17:38)
[2018-03-29] MEDS: IBUPROFEN 600 MG TAB PO PRN (18:03)
[2018-03-29] MEDS: ACETAMINOPHEN TAB 325 MG TAB PO PRN (23:03)
[2018-03-30] MEDS: SENNOSIDES-DOCUSATE SODIUM 1 EACH TAB PO SCH ×2 (00:49→07:27)
[2018-03-30] MEDS: IBUPROFEN 600 MG TAB PO PRN ×3 (01:16→13:05)
[2018-03-30] MEDS: ACETAMINOPHEN TAB 325 MG TAB PO PRN ×2 (02:51→10:55)
[2018-03-30 08:26] VITALS: RESP 18
[2018-03-30] MEDS ORDERED: MEASLES-MUMPS-RUBELLA VACC/PF 12,500 UNIT/0.5 ML VIAL SQ ONE (08:31)
[2018-03-30] MEDS ORDERED: INFLUENZA VACCINE (6 MOS+) 60 MCG/0.5 ML SYRINGE IM ONE (08:31)
[2018-03-30 12:51] VITALS: BP 119/62; PULSE 63; TEMP 97.2
--- NOTE | 2018-03-30 14:07 | P.DS ---
Providers Date of admission: 03/29/18 06:01 Expected date of discharge: 03/30/18 Attending physician: Roshni Lacy Primary care physician: Stated None - Discharge Diagnosis(es) (1) Normal labor Current Visit: Yes Status: Resolved (2) Normal vaginal delivery Current Visit: Yes Status: Acute (3) Fourth degree laceration of perineum during delivery, Current Visit: Yes Status: Acute Hospital Course: Patient presented for induction of labor. She underwent normal vaginal delivery. She had repair of the fourth degree laceration. Her course was complicated by some groin discomfort. She is in severe pain when she tries to walk, and that her legs. This is likely due to the fact that when she did have her epidural she sat with her legs very wide apart and then she did push with her legs very wide apart spreading her tendons quite wide. She probably did pull these tendons and muscles. I had a discussion with her about taking anti-inflammatories, using ice, and rest. If this does not improve in the next few days to weeks she will need to see orthopedics. Plan - Discharge Summary New Discharge Prescriptions: New Ibuprofen [Motrin] 600 mg PO Q6HR PRN #30 tab PRN Reason: Mild Pain Or Fever >= 100.5 No Action Sgj-Johp-Jlapk Acid [-U Capsule (formulary)] 1 cap PO DAILY Discharge Medication List Smz-Rbbx-Aavfk Acid [-U Capsule (formulary)] 1 cap PO DAILY [History] Ibuprofen [Motrin] 600 mg PO Q6HR PRN #30 tab 03/30/18 [Rx] Follow up Appointment(s)/Referral(s): Roshni Lacy DO [Doctor of Osteopathic Medicine] - 6 Weeks Discharge Disposition: HOME SELF-CARE
== END 2018-03-30 19:14 | disposition home or self-care (01) | DRG 768 ==
LOC: 4FBP 06:01
PROVIDERS: ADMIT Obstetrics & Gynecology; ATTEND Obstetrics & Gynecology
PROC: 10E0XZZ Delivery of Products of Conception, External Approach (ICD-10-PCS; principal; 2018-03-29)
PROC: 0DQP0ZZ Repair Rectum, Open Approach (ICD-10-PCS; 2018-03-29)
PROC: 3E033VJ Introduction of Other Hormone into Peripheral Vein, Percutaneous Approach (ICD-10-PCS; 2018-03-29)
PROC: 10907ZC Drainage of Amniotic Fluid, Therapeutic from Products of Conception, Via Natural or Artificial Opening (ICD-10-PCS; 2018-03-29)
PROC: 00HU33Z Insertion of Infusion Device into Spinal Canal, Percutaneous Approach (ICD-10-PCS; 2018-03-29)
PROC: 3E0R3BZ Introduction of Anesthetic Agent into Spinal Canal, Percutaneous Approach (ICD-10-PCS; 2018-03-29)
DX: O69.81X0 Labor and delivery complicated by cord around neck, without compression, not applicable or unspecified (principal); Z37.0 Single live birth; O70.3 Fourth degree perineal laceration during delivery; O99.52 Diseases of the respiratory system complicating childbirth; J45.909 Unspecified asthma, uncomplicated; Z3A.40 40 weeks gestation of pregnancy; Z88.1 Allergy status to other antibiotic agents; Z88.2 Allergy status to sulfonamides; Z83.3 Family history of diabetes mellitus; Z80.49 Family history of malignant neoplasm of other genital organs; Z80.0 Family history of malignant neoplasm of digestive organs
CPT/HCPCS: 85025; 86850; 86900; 86901; 90686; 90707

== ENCOUNTER → 2020-01-13 | Outpatient (CLI) | payer MEDICAID ==
[2020-01-13 12:24] LABS: HCT 42.5 % (34.0-46.0); HGB 13.5 gm/dL (11.4-16.0); MCH 28.5 pg (25.0-35.0); MCHC 31.7 g/dL (31.0-37.0); MCV 89.9 fL (80.0-100.0); Mean Platelet Volume 7.8; Platelet Count 224 k/uL (150-450); RBC 4.73 m/uL (3.80-5.40); RDW 12.6 % (11.5-15.5); WBC 6.9 k/uL (3.8-10.6)
[2020-01-13 20:11] LABS: African American GFR (CKD) 144.8 (60.0-200.0); Non-African American GFR(CKD) 124.9 (60.0-200.0)
[2020-01-13 20:25] LABS: Hepatitis B Surface Antigen Non-Reactive (Non-Reactive)
== END | disposition home or self-care (01) ==
LOC: LABWHC1 11:21
PROVIDERS: ATTEND Obstetrics & Gynecology
DX: Z34.81 Encounter for supervision of other normal pregnancy, first trimester (principal)
CPT/HCPCS: 36415; 82565; 82947; 85027; 86762; 86777; 86778; 86780; 86850; 86900; 86901; 87340

== ENCOUNTER 2020-02-08 14:34 | Outpatient (CLI) | payer MEDICAID ==
[2020-02-08] MEDS ORDERED: ONDANSETRON 4 MG/2 ML VIAL IVP STA (14:56)
[2020-02-08] MEDS ORDERED: DEXTROSE 5%-LACTATED RINGERS 1,000 ML IV ONE (15:00)
[2020-02-08] MEDS ORDERED: LACTATED RINGERS 1,000 ML IV SCH (15:00)
== END 2020-02-08 17:55 | disposition home or self-care (01) ==
LOC: FBPOP 14:34
PROVIDERS: ATTEND Obstetrics & Gynecology
DX: Z34.81 Encounter for supervision of other normal pregnancy, first trimester (principal)
CPT/HCPCS: 99214; 96360; 96361; 96375; J2405; 96365; 96367; 96374

== ENCOUNTER 2020-02-14 13:18 | Outpatient (CLI) | payer MEDICAID ==
[2020-02-14] MEDS ORDERED: LACTATED RINGERS 1,000 ML IV SCH (14:15)
[2020-02-14] MEDS ORDERED: DEXTROSE 5%-LACTATED RINGERS 1,000 ML IV SCH (14:15)
[2020-02-14] MEDS ORDERED: ONDANSETRON 4 MG/2 ML VIAL IVP STA (14:30)
[2020-02-14 14:42] LABS: Basophils % (A) 0 %; Eosinophils # (A) 0.1 k/uL (0-0.7); Eosinophils % (A) 1 %; HCT 42.8 % (34.0-46.0); HGB 14.3 gm/dL (11.4-16.0); Lymphocytes # (A) 1.6 k/uL (1.0-4.8); Lymphocytes % (A) 24 %; MCH 29.4 pg (25.0-35.0); MCHC 33.3 g/dL (31.0-37.0); MCV 88.2 fL (80.0-100.0); Mean Platelet Volume 8.6; Monocytes # (A) 0.3 k/uL (0-1.0); Monocytes % (A) 4 %; Neutrophils # (A) 4.5 k/uL (1.3-7.7); Neutrophils % (A) 69 %; Platelet Count 225 k/uL (150-450); RBC 4.85 m/uL (3.80-5.40); RDW 12.5 % (11.5-15.5); WBC 6.5 k/uL (3.8-10.6)
[2020-02-14 15:06] LABS: Appearance,Urine Clear (Clear); Bacteria,Urine Occasional /hpf; Bilirubin,Urine Negative (Negative); Blood,Urine Negative (Negative); Color,Urine Yellow; Glucose,Urine (UA) Negative (Negative); Ketones,Urine Trace (Negative); Leukocyte Esterase,Urine Moderate (Negative); Mucus,Urine Occasional /hpf; Nitrite,Urine Negative (Negative); PH, Urine 6.5 (5.0-8.0); Protein,Urine Trace (Negative); Specific Gravity,Urine 1.029 (1.001-1.035); Squamous Epithelial Cell,Urine 6 /hpf (0-4); WBC,Urine 3 /hpf (0-5)
[2020-02-14 15:50] LABS: Potassium 3.8 mmol/L (3.5-5.1)
[2020-02-14 18:05] VITALS: BP 115/68; PULSE 76; RESP 16; TEMP 98.1
--- NOTE | 2020-02-17 13:02 | P.MSEPDOC ---
Presenting Problems - Arrival Data Date of Arrival on Unit: 02/14/20 Time of Arrival on Unit: 13:18 Mode of Transport: Ambulatory - Complaint OB-Reason for Admission/Chief Complaint: Acute Nausea/Vomiting Medical History - Information : 2 Para: 1 Term: 1 : 0 Abortions: Spontaneous or Elective: 0 Number of Living Children: 1 - Gestational Age Gestational Age by KENNEDY (wks/days): 12 Weeks and 0 Days Review of Systems - Review of Systems Constitutional: No problems Breast: No problems ENT: No problems Cardiovascular: No problems Respiratory: No problems Gastrointestinal: No problems Genitourinary: No problems Musculoskeletal: No problems Neurological: No problems Skin: No problems Vital Signs - Temperature Temperature: 98.1 F Temperature Source: Oral - Pulse Right Sitting Brachial Pulse Rate: 76 Pulse Assessment Method: Automatic Cuff - Respirations Respiratory Rate: 16 Oxygen Delivery Method: Room Air - Blood Pressure Right Arm Sitting Blood Pressure: 115/68 Blood Pressure Mean: 83 Blood Pressure Source: Automatic Cuff Medical Screen Scoring (Pre) - Cervical Exam Dilation: Exam Deferred Effacement: Exam Deferred Membranes: Intact - Uterine Contractions Frequency: N/A Duration: N/A Intensity: N/A - Maternal Vital Signs Maternal Temperature: N/A Maternal Blood Pressure: N/A Signs of Preeclampsia: N/A Maternal Respirations: N/A - Maternal Trauma Maternal Trauma: N/A - Total Score - Baby A Total Score - Baby A: 0 - Total Score - Baby B Total Score - Baby B: 0 - Total Score - Baby C Total Score - Baby C: 0 - Level of Risk - Baby A Level of Risk - Baby A: Low (0-5) - Level of Risk - Baby B Level of Risk - Baby B: Low (0-5) - Level of Risk - Baby C Level of Risk - Baby C: Low (0-5) Physician Notification (Pre) - Physician Notified Physician Notified Date: 02/14/20 Physician Notified Time: 13:55 - Notification Comment Comment: dr. lion returned call, notified of pts nausea and vomiting returned after. starting antibiotics for sinus infection, unable to keep anything down since thursday. night, per dr. hancock send urinalysis, order cbc and electrolytes, start iv and give. D5LR, and then switch to LR, no need to doppler heart tones due to gestation Medical Screen Scoring (Post) - Cervical Exam Dilation: Exam Deferred Effacement: Exam Deferred Membranes: Intact - Uterine Contractions Frequency: N/A Duration: N/A Intensity: N/A - Maternal Vital Signs Maternal Temperature: N/A Maternal Blood Pressure: N/A Signs of Preeclampsia: N/A Maternal Respirations: N/A - Maternal Trauma Maternal Trauma: N/A - Total Score Total Score - Baby A: 0 Total Score - Baby B: 0 Total Score - Baby C: 0 - Post Treatment Level of Risk Post Treatment Level of Risk - Baby A: Low (0-5) Post Treatment Level of Risk - Baby B: Low (0-5) Post Treatment Level of Risk - Baby C: Low (0-5) Physician Notification (Post) - Physician Notified Physician Notified Date: 02/14/20 Physician Notified Time: 16:58 Physician/Practitioner Notified:: Regino Spoke With: Regino New Order Received: Yes - Notification Comment Comment: Reviewed labs, pts nausea decreased c\Zofran, pt tolerated popsicle and requested discharge, orders rec'd for pt to be d/c home, to follow up in office as scheduled. Disposition - Disposition OB Disposition: Discharge to home, Written follow up instructions reviewed Discharge Date: 02/14/20 Discharge Time: 17:00 I agree with the RN Medical Screening Exam: Yes Risk & Benefit of care provided described in d/c instruction: Yes Diagnosis: MILD HYPEREMESIS GRAVIDARUM
== END 2020-02-14 17:00 | disposition home or self-care (01) ==
LOC: FBPOP 13:18
PROVIDERS: ATTEND Obstetrics & Gynecology
DX: O21.0 Mild hyperemesis gravidarum (principal); Z3A.12 12 weeks gestation of pregnancy
CPT/HCPCS: 99214; 96361; 96374; 80051; 85025; 81001; J2405; 96360; 96375; 99213

== ENCOUNTER → 2020-02-14 | Outpatient (CLI) | payer MEDICAID | END | disposition home or self-care (01) | LOC: LABWHC1 13:11 | PROVIDERS: ATTEND Pediatrics Pediatric Infectious Diseases | DX: Z20.828 Contact with and (suspected) exposure to other viral communicable diseases (principal) | CPT/HCPCS: U0003; C9803 ==

== ENCOUNTER → 2020-03-09 | Outpatient (CLI) | payer MEDICAID ==
--- NOTE | 2020-03-09 10:29 | US ---
EXAMINATION TYPE: US OB >= 14 wk fetus DATE OF EXAM: 03/09/2020 COMPARISON: None CLINICAL HISTORY: O46.92 Bleeding and spotting spotting TECHNIQUE: Transabdominal (TA) GESTATIONAL AGE / DATING Physician Established: (15 weeks/3 days) EDC: 08/28/20 Dates by LMP: LMP unknown Dates by First Scan: No previous this is first scan Dates by Current Scan: (15 weeks/4 days) EDC: 08/27/20 SURVEY IUP: Single PLACENTA: Posterior PREVIA: low lying/ Marginal MATHEW: 9.5 cm Normal CERVICAL LENGTH (transabdominal: norm > 3.0cm): 3.7 cm BIOMETRY PRESENTATION: Vertex LIE: Transverse with head maternal LT BPD: 2.9 cm 15 weeks / 2 days HC: 10.9 cm 15 weeks / 2 days AC: 8.8 cm 15 weeks / 1 days FL: 1.8 cm 15 weeks / 3 days ESTIMATED WEIGHT IN GRAMS: 119 grams ESTIMATED WEIGHT IN LBS/OZ: 0 lbs. 4 oz. WEIGHT PERCENTAGE BASED ON ESTABLISHED DATES: 28.2% HC/AC: 1.23 Normal FL/AC: 20.77 Normal HEART RATE: 142 bpm RHYTHM: Normal No cervical thinning on initial images. Single live intrauterine gestation with calculated amniotic f luid index lower limits of normal. Low lying placenta approaching cervical os. biometry measure ments congruent and felt within normal limits. Vertex presentation not identified currently. A vascul ar 2.1 cm hypoechoic structure along the inferior margin of the placenta could reflect placental naqvi or small focal hemorrhage. IMPRESSION: As above. Progress study advised.
== END | disposition home or self-care (01) ==
LOC: RADUSWWP 09:39
PROVIDERS: ATTEND Obstetrics & Gynecology
DX: O44.42 Low lying placenta NOS or without hemorrhage, second trimester (principal); Z3A.15 15 weeks gestation of pregnancy; Z88.1 Allergy status to other antibiotic agents; Z88.2 Allergy status to sulfonamides
CPT/HCPCS: 76805

== ENCOUNTER → 2020-04-19 | Outpatient (CLI) | payer MEDICAID ==
--- NOTE | 2020-04-19 15:36 | US ---
EXAMINATION TYPE: US OB anatomy transabd DATE OF EXAM: 04/19/2020 COMPARISON: US 03/09/2020 HISTORY: O36.62X0 Maternal care for excessive growth Anatomy TECHNIQUE: Transabdominal (TA) EXAM MEASUREMENTS: GESTATIONAL AGE / DATING Physician Established: (21 weeks/2 days) EDC: 08/28/2020 Dates by LMP: (21 weeks/2 days) EDC: 08/28/2020 Dates by First Scan: (21 weeks/3 days) EDC: 08/27/2020 Dates by Current Scan for: (20 weeks/2 days) EDC: 09/04/2020 SURVEY IUP: Single PLACENTA: Posterior PREVIA: Complete MATHEW: 13.5 cm Normal CERVICAL LENGTH (transabdominal: norm > 3.0cm): 4.0 cm BIOMETRY PRESENTATION: Variable LIE: Longitudinal BPD: 4.7 cm 20 weeks / 1 days HC: 17.8 cm 20 weeks / 2 days AC: 15.5 cm 20 weeks / 4 days FL: 3.4 cm 20 weeks / 5 days ESTIMATED WEIGHT IN GRAMS: 364 grams ESTIMATED WEIGHT IN LBS/OZ: 0 lbs. 13 oz. WEIGHT PERCENTAGE BASED ON ESTABLISHED DATE: 14.9 % HC/AC: 1.15 Normal FL/AC: 21.96 Normal HEART RATE: 148 bpm RHYTHM: Normal ANATOMY SEEN (within normal limits): * Lateral Vent (< 1 cm) 0.8 cm * Cisterna Magna (< 1.1 cm) 0.5 cm * Nuchal Fold (< 0.6 cm) 0.5 cm * Cerebellum (varies with age) 2.1 cm Choroid Plexus (bilateral) Midline Falx Cavus Septi Pellucidi Four Chamber Heart Outflow tracts: LVOT/RVOT Stomach Situs Nose / Lips Diaphragm Kidneys (bilateral) Bladder Cord Insert Three Vessel Cord Longitudinal Spine Transverse Spine Arms (bilateral) Legs (bilateral) lower legs not included. Viable IUP with an KENNEDY of 09/04/2020 by this exam. Complete placenta previa IMPRESSION: Single viable intrauterine corresponding to an ultrasound age 20 weeks 2 days with estimate d date of delivery 09/04/2020 by today's exam. Placenta previa. Locations as described.
== END | disposition home or self-care (01) ==
LOC: RADUSWWP 12:49
PROVIDERS: ATTEND Obstetrics & Gynecology
DX: O44.02 Complete placenta previa NOS or without hemorrhage, second trimester (principal); Z3A.20 20 weeks gestation of pregnancy
CPT/HCPCS: 76811

== ENCOUNTER → 2020-06-08 | Outpatient (CLI) | payer MEDICAID ==
[2020-06-08 11:01] LABS: HCT 37.5 % (34.0-46.0); HGB 12.8 gm/dL (11.4-16.0); MCH 29.9 pg (25.0-35.0); MCHC 34.3 g/dL (31.0-37.0); MCV 87.2 fL (80.0-100.0); Mean Platelet Volume 8.9; Platelet Count 169 k/uL (150-450); RDW 13.4 % (11.5-15.5); WBC 7.8 k/uL (3.8-10.6)
== END | disposition home or self-care (01) ==
LOC: LABWHC1 09:25
PROVIDERS: ATTEND Obstetrics & Gynecology
DX: Z34.83 Encounter for supervision of other normal pregnancy, third trimester (principal); Z3A.00 Weeks of gestation of pregnancy not specified
CPT/HCPCS: 36415; 82950; 85027

== ENCOUNTER 2020-06-10 15:45 | Emergency (ER) | payer MEDICAID ==
[2020-06-10 15:49] VITALS: TEMP 97.9
--- NOTE | 2020-06-10 15:54 | ED ---
General Adult HPI - General Chief complaint: Arrhythmia/Palpitations Stated complaint: heart palpitations Time Seen by Provider: 06/10/20 15:53 Source: patient Mode of arrival: ambulatory Limitations: no limitations - History of Present Illness Initial comments: Patient is a at 28 weeks gestation who presents to the ED complaining of having palpitations and lightheadedness. Patient is a nurse here in the hospital, and she states that she was sitting down while at work a short while ago when she developed sudden onset of rapid heart palpitations and a feeling of lightheadedness. Patient states that she wears a watch that can detect her p ulse rate, and she states that she had a reading in the 120s. Patient states that her palpitations and lightheadedness have now resolved. Patient states that she has been having irregular "Rogers Cain" contractions over the past 3 weeks, and she states that her OB (Dr. Lacy) is aware of this. Patient denies having any abdominal pain or any pain at all currently. Patient states that she did eat lunch today, and she denies decreased PO intake. Patient denies alcohol or drug abuse. Patient denies taking any medication besides vitamins. Patient denies having any pain, fever or chills, headache, focal numbness/weakness/neuro deficit, chest pain, dyspnea, cough or cold symptoms, syncope, vomiting or diarrhea, bloody or melanotic stool, dysuria or urinary symptoms, vaginal bleeding, leg or calf swelling or pain, or any other symptoms or complaints. Patient states that has placenta previa with her current . - Related Data Home Medications Medication Instructions Recorded Confirmed Ryv-Qkqy-Pfzje Acid 1 cap PO DAILY 09/11/17 06/10/20 [-U Capsule (formulary)] Allergies Allergy/AdvReac Type Severity Reaction Status Date / Time clarithromycin [From Biaxin] Allergy Rash/Hives Verified 06/10/20 17:07 fluconazole [From Diflucan] Allergy Rash/Hives Verified 06/10/20 17:07 pseudoephedrine Allergy Rash/Hives Verified 06/10/20 17:07 [From Sudafed] Sulfa (Sulfonamide Allergy Unknown Verified 06/10/20 17:07 Antibiotics) sulfamethoxazole Allergy Rash/Hives Verified 06/10/20 17:07 [From Bactrim] trimethoprim [From Bactrim] Allergy Rash/Hives Verified 06/10/20 17:07 Review of Systems ROS Statement: Those systems with pertinent positive or pertinent negative responses have been documented in the HPI. ROS Other: All systems not noted in ROS Statement are negative. Past Medical History Past Medical History: Asthma Additional Past Medical History / Comment(s): Obstetric history: This is her first . She's had care with me since the first trimester. Her blood type is A+, antibodies negative, rubella nonimmune, uneffaced B-, GBS negative, HIV nonreactive. 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 Past Anesthesia/Blood Transfusion Reactions: No Reported Reaction Past Psychological History: No Psychological Hx Reported Smoking Status: Never smoker Past Alcohol Use History: None Reported Past Drug Use History: None Reported - Past Family History Mother Family Medical History: Cancer, Diabetes Mellitus Additional Family Medical History / Comment(s): PPH mother and great grandmother. Colon and cervical cancer. General Exam Limitations: no limitations General appearance: alert, in no apparent distress Head exam: Present: atraumatic, normocephalic Eye exam: Present: normal appearance, EOMI ENT exam: Present: mucous membranes moist Neck exam: Present: other (Trachea is in midline) Respiratory exam: Present: normal lung sounds bilaterally. Absent: respiratory distress, wheezes, rales, rhonchi, stridor Cardiovascular Exam: Present: regular rate, normal rhythm, normal heart sounds, other (Normal radial pulses bilaterally) GI/Abdominal exam: Present: soft, other (Gravid abdomen). Absent: tenderness, guarding Extremities exam: Present: other (Negative Homans sign bilaterally). Absent: tenderness, pedal edema, calf tenderness Neurological exam: Present: alert, oriented X3. Absent: motor sensory deficit Psychiatric exam: Present: normal affect, normal mood Skin exam: Present: warm, dry, intact, normal color Course Vital Signs 06/10/20 06/10/20 15:46 16:25 Temperature 97.9 F Pulse Rate 92 85 Respiratory 20 18 Rate Blood Pressure 124/70 125/86 O2 Sat by Pulse 100 98 Oximetry - Reevaluation(s) Reevaluation #1: 06/10/20 17:09 heart tones were measured at 135 bpm by OB nursing staff. 06/10/20 17:33 Case was discussed with OB RN Kendal, and she agrees with plan to discharge the patient from the ED at this time and send the patient up to the OB floor for monitoring. 06/10/20 17:57 Patient continues to deny having any palpitations or symptoms while in the ED. Patient remains in normal sinus rhythm on the cracker sprayer. Patient's labs are fairly unremarkable. Patient remains alert and breathing comfortably with a normal room air oxygen saturation. Patient is aware of her test results, and she agrees to go to the OB floor upon discharge from the ED for monitoring. Patient was counseled about palpitations and lightheadedness, and she was clearly explained return and follow-up instructions. She was instructed to follow up closely with her CLINICAL BIOSTATISTICIAN, as well as her primary care provider. She feels comfortable with this plan. EKG Findings - EKG Comments: EKG Findings:: Normal sinus rhythm, ventricular rate of 93 bpm, normal [place] and QRS intervals, normal QT interval, normal axis, no ST or T-wave abnormality Medical Decision Making - Lab Data Result diagrams: 06/10/20 16:10 06/10/20 16:10 Lab Results 06/10/20 06/10/20 06/10/20 Range/Units 16:10 16:10 16:10 WBC 9.1 (3.8-10.6) k/uL RBC 4.69 (3.80-5.40) m/uL Hgb 13.7 (11.4-16.0) gm/dL Hct 40.3 (34.0-46.0) % MCV 85.9 (80.0-100.0) fL MCH 29.2 (25.0-35.0) pg MCHC 34.0 (31.0-37.0) g/dL RDW 13.4 (11.5-15.5) % Plt Count 174 (150-450) k/uL MPV 8.3 Neutrophils % 75 % Lymphocytes % 20 % Monocytes % 3 % Eosinophils % 1 % Basophils % 0 % Neutrophils # 6.8 (1.3-7.7) k/uL Lymphocytes # 1.8 (1.0-4.8) k/uL Monocytes # 0.3 (0-1.0) k/uL Eosinophils # 0.1 (0-0.7) k/uL Basophils # 0.0 (0-0.2) k/uL Sodium 135 L (137-145) mmol/L Potassium 4.7 (3.5-5.1) mmol/L Chloride 108 H (98-107) mmol/L Carbon Dioxide 20 L (22-30) mmol/L Anion Gap 7 mmol/L BUN 9 (7-17) mg/dL Creatinine 0.44 L (0.52-1.04) mg/dL Est GFR (CKD-EPI)AfAm >90 (>60 ml/min/1.73 sqM) Est GFR (CKD-EPI)NonAf >90 (>60 ml/min/1.73 sqM) Glucose 112 H (74-99) mg/dL Calcium 8.8 (8.4-10.2) mg/dL Magnesium 1.9 (1.6-2.3) mg/dL Total Bilirubin 0.7 (0.2-1.3) mg/dL AST 35 (14-36) U/L ALT 12 (4-34) U/L Alkaline Phosphatase 86 (38-126) U/L Troponin I <0.012 (0.000-0.034) ng/mL Total Protein 7.4 (6.3-8.2) g/dL Albumin 3.7 (3.5-5.0) g/dL Disposition Clinical Impression: Palpitations, Lightheadedness, Disposition: HOME SELF-CARE Condition: Stable Instructions (If sedation given, give patient instructions): Heart Palpitations (ED), Lightheadedness (ED) Additional Instructions: Return to the ER immediately should you develop increased dizziness/lighthead edness, fainting, a fever, abdominal pain, chest pain, vomiting, or new or worsening symptoms. Follow up closely with your primary care provider, as well as your CLINICAL BIOSTATISTICIAN. Go to the OB floor for monitoring immediately upon discharge from the emergency room today. Is patient prescribed a controlled substance at d/c from ED?: No Referrals: None,Stated [Primary Care Provider] - 1-2 days Roshni Lacy DO [Doctor of Osteopathic Medicine] - 1-2 days Rad Linn MD [REFERRING] - 1-2 days Time of Disposition: 18:02
[2020-06-10] MEDS ORDERED: SODIUM CHLORIDE 0.9% 500 ML 500 ML IV STA (16:00)
[2020-06-10 16:24] LABS: Basophils % (A) 0 %; Eosinophils # (A) 0.1 k/uL (0-0.7); Eosinophils % (A) 1 %; HCT 40.3 % (34.0-46.0); HGB 13.7 gm/dL (11.4-16.0); Lymphocytes # (A) 1.8 k/uL (1.0-4.8); Lymphocytes % (A) 20 %; MCH 29.2 pg (25.0-35.0); MCV 85.9 fL (80.0-100.0); Mean Platelet Volume 8.3; Monocytes # (A) 0.3 k/uL (0-1.0); Monocytes % (A) 3 %; Neutrophils # (A) 6.8 k/uL (1.3-7.7); Neutrophils % (A) 75 %; Platelet Count 174 k/uL (150-450); RBC 4.69 m/uL (3.80-5.40); RDW 13.4 % (11.5-15.5); WBC 9.1 k/uL (3.8-10.6)
[2020-06-10 16:29] VITALS: BP 125/86; PULSE 85; RESP 18
[2020-06-10 16:35] LABS: ALT 12 U/L (4-34); AST 35 U/L (14-36); African American GFR (CKD) >90 (>60 ml/min/1.73 sqM); Albumin 3.7 g/dL (3.5-5.0); Alkaline Phosphatase 86 U/L (38-126); Anion Gap 7 mmol/L; Blood Urea Nitrogen 9 mg/dL (7-17); Calcium 8.8 mg/dL (8.4-10.2); Carbon Dioxide 20 mmol/L (22-30); Chloride 108 mmol/L (98-107); Glucose 112 mg/dL (74-99); Non-African American GFR(CKD) >90 (>60 ml/min/1.73 sqM); Sodium 135 mmol/L (137-145); Total Bilirubin 0.7 mg/dL (0.2-1.3); Total Protein 7.4 g/dL (6.3-8.2)
[2020-06-10 16:38] LABS: Potassium 4.7 mmol/L (3.5-5.1)
[2020-06-10 16:39] LABS: Magnesium 1.9 mg/dL (1.6-2.3)
== END 2020-06-10 18:49 | disposition home or self-care (01) ==
LOC: EC 15:45
DX: O26.893 Other specified pregnancy related conditions, third trimester (principal); R42 Dizziness and giddiness; R00.2 Palpitations; Z3A.28 28 weeks gestation of pregnancy; Z88.1 Allergy status to other antibiotic agents; Z88.2 Allergy status to sulfonamides; Z88.3 Allergy status to other anti-infective agents; Z88.8 Allergy status to other drugs, medicaments and biological substances
CPT/HCPCS: 36415; 80053; 83735; 84484; 85025; 93005; 99285

== ENCOUNTER 2020-06-10 18:25 | Outpatient (CLI) | payer MEDICAID ==
[2020-06-10 19:17] VITALS: BP 111/63; PULSE 83; RESP 14; TEMP 97.2
--- NOTE | 2020-06-10 19:19 | P.MSEPDOC ---
Presenting Problems - Arrival Data Date of Arrival on Unit: 06/10/20 Time of Arrival on Unit: 18:40 Mode of Transport: Wheelchair - Complaint OB-Reason for Admission/Chief Complaint: Other Comment: pt was seen in ER for heart palpatations and cleared. ER sent her up for contractions Medical History - Information : 2 Para: 1 Term: 1 : 0 Abortions: Spontaneous or Elective: 0 Number of Living Children: 1 - Gestational Age Gestational Age by KENNEDY (wks/days): 28 Weeks and 5 Days Review of Systems - Review of Systems Constitutional: No problems Breast: No problems ENT: No problems Cardiovascular: No problems Respiratory: No problems Gastrointestinal: No problems Genitourinary: No problems Musculoskeletal: No problems Neurological: No problems Skin: No problems Vital Signs - Temperature Temperature: 97.2 F Temperature Source: Temporal Artery Scan - Pulse Right Brachial Pulse Rate: 83 - Respirations Respiratory Rate: 14 Oxygen Delivery Method: Room Air - Blood Pressure Right Arm Blood Pressure: 111/63 Blood Pressure Mean: 79 Blood Pressure Source: Automatic Cuff Medical Screen Scoring (Pre) - Cervical Exam Dilation: Exam Deferred Effacement: Exam Deferred Membranes: Intact - Uterine Contractions Frequency: N/A Duration: N/A Intensity: N/A - Maternal Vital Signs Maternal Temperature: N/A Maternal Blood Pressure: N/A Signs of Preeclampsia: N/A Maternal Respirations: N/A - Maternal Trauma Maternal Trauma: N/A - Assessment - Baby A Baseline FHR: 130 Heart Rate - NICHD Category: Category I (Normal) = 0 NST: Reactive Position: N/A Station: N/A - Total Score - Baby A Total Score - Baby A: 0 - Total Score - Baby B Total Score - Baby B: 0 - Total Score - Baby C Total Score - Baby C: 0 - Level of Risk - Baby A Level of Risk - Baby A: Low (0-5) - Level of Risk - Baby B Level of Risk - Baby B: Low (0-5) - Level of Risk - Baby C Level of Risk - Baby C: Low (0-5) Physician Notification (Pre) - Physician Notified Physician Notified Date: 06/10/20 Physician Notified Time: 18:55 New Order Received: Yes - Notification Comment Comment: dr roque in department, reported pt visit to ER and triage. reported no contractions per pt or monitoring, fht reactive, reported pt cleared in er for heart palpatations and resolved with hydration and rest. dr roque discharges pt Disposition - Disposition OB Disposition: Discharge to home Discharge Date: 06/10/20 Discharge Time: 19:00 I agree with the RN Medical Screening Exam: Yes Risk & Benefit of care provided described in d/c instruction: Yes Diagnosis: RELATED CONDITIONS, UNSPECIFIED, SECOND TRIMESTER
== END 2020-06-10 19:00 | disposition home or self-care (01) ==
LOC: FBPOP 18:25
PROVIDERS: ATTEND Obstetrics & Gynecology
DX: O26.93 Pregnancy related conditions, unspecified, third trimester (principal); Z3A.28 28 weeks gestation of pregnancy
CPT/HCPCS: 59025; 99213

== ENCOUNTER → 2020-07-02 | Outpatient (CLI) | payer MEDICAID ==
--- NOTE | 2020-07-03 09:44 | ECHOF ---
Referral Reason:R00.2 Palpitations MEASUREMENTS -------- HEIGHT: 162.6 cm WEIGHT: 76.2 kg BP: RVIDd: 2.2 cm (< 3.3) IVSd: 0.7 cm (0.6 - 1.1) LVIDd: 3.6 cm (3.9 - 5.3) LVPWd: 0.9 cm (0.6 - 1.1) IVSs: 1.2 cm LVIDs: 2.4 cm LVPWs: 1.4 cm LAESV Index (A-L): 13.87 ml/m Ao Diam: 2.2 cm (2.0 - 3.7) AV Cusp: 1.6 cm (1.5 - 2.6) LA Diam: 2.6 cm (2.7 - 3.8) MV EXCURSION: 10.152 mm (> 18.000) MV EF SLOPE: 67 mm/s (70 - 150) EPSS: 0.6 cm MV E Saad: 0.96 m/s MV DecT: 148 ms MV A Saad: 0.77 m/s MV E/A Ratio: 1.24 RAP: 5.00 mmHg RVSP: 27.89 mmHg FINDINGS -------- This was a technically good study. The left ventricular size is normal. Left ventricular wall thickness is normal. Overall left vent ricular systolic function is normal with, an EF between 55 - 60 %. The right ventricle is normal in size. The left atrial size is normal. Normal LA size by volume 22+/-6 ml/m2. The right atrial size is normal. The aortic valve is trileaflet and appears structurally normal. The mitral valve is normal. There is trace mitral regurgitation. The tricuspid valve appears structurally normal. Trace tricuspid regurgitation present. Right erlin tricular systolic pressure is normal at < 35 mmHg. There is no pulmonic regurgitation present. The aortic root size is normal. Normal inferior vena cava with normal inspiratory collapse consistent with estimated right atrial pre ssure of 5 mmHg. There is no pericardial effusion. CONCLUSIONS -------- 1. The left ventricular size is normal. 2. Left ventricular wall thickness is normal. 3. Overall left ventricular systolic function is normal with, an EF between 55 - 60 %. 4. There is trace mitral regurgitation. 5. Trace tricuspid regurgitation present. 6. There is no pericardial effusion. [employer] PIECE CONSULTANT: Carla Mejia RDCS
--- NOTE | 2020-07-06 15:55 | HM ---
This is a 48 hour Holter monitor report. Baseline EKG showed sinus rhythm. Patient remained mostly in sinus rhythm with an average heart rate of 91. The minimum rate is 55 and maximum is 145. Patient had occasional APCs and occasional PVCs. Patient did not report any cardiac symptoms. No sustained arrhythmias are noted. Final impression #1. Sinus rhythm. #2. Occasional APCs. #3. Rare PVCs #4. No sustained arrhythmias noted. #5. Patient did not report any symptoms. MTDD
== END | disposition home or self-care (01) ==
LOC: RADECHMAIN 11:40
PROVIDERS: ATTEND Internal Medicine Cardiovascular Disease
DX: I49.8 Other specified cardiac arrhythmias (principal); R00.2 Palpitations
CPT/HCPCS: 93225; 93226; 93306

== ENCOUNTER → 2020-07-25 | Outpatient (CLI) | payer MEDICAID ==
--- NOTE | 2020-07-25 14:13 | US ---
EXAMINATION TYPE: US OB >= 14 wk fetus DATE OF EXAM: 07/25/2020 COMPARISON: 04/19/2020 CLINICAL HISTORY: 29-year-old female O36.63X0 Large for date 3rd trimester , assess Growth TECHNIQUE: Transabdominal (TA) GESTATIONAL AGE / DATING Physician Established: (35 weeks/1 days) EDC: 08/28/2020 Dates by Current Scan: (34 weeks/6 days) (5 days more growth than expected compared to 04/19/2020) EDC: 08/30/2020 Beta HCG (if available): Not available at this time FINDINGS: SURVEY IUP: Single PLACENTA: Posterior PREVIA: No Previa MATHEW: 21.6 cm Polyhydramnios (versus 13.5 cm, previously) CERVICAL LENGTH (transabdominal: norm > 3.0cm): 3.6 cm BIOMETRY PRESENTATION: Vertex BPD: 8.6 cm 34 weeks / 5 days HC: 31.6 cm 35 weeks / 4 days AC: 31.2 cm 35 weeks / 1 days FL: 6.6 cm 34 weeks / 0 days ESTIMATED WEIGHT IN GRAMS: 2523 grams ESTIMATED WEIGHT IN LBS/OZ: 5 lbs. 9 oz. WEIGHT PERCENTAGE BASED ON ESTABLISHED DATES: 38% (versus 15 percentile, previously) HC/AC: 1.0 Normal FL/AC: 21% Normal HEART RATE: 128 bpm RHYTHM: Normal IMPRESSION: 1. Single live intrauterine with established gestational age of 35 weeks 1 day. Current ult rasound biometry is concordant (34 weeks 6 days) with 5 days more growth than expected from 0. EFW percentile has increased from the 15th percentile now to the 38th percentile. 2. Borderline to mild polyhydramnios with MATHEW measuring 21.6 cm (versus 13.5 cm, previously).
== END | disposition home or self-care (01) ==
LOC: RADUSWWP 10:54
PROVIDERS: ATTEND Obstetrics & Gynecology
DX: O36.63X0 Maternal care for excessive fetal growth, third trimester, not applicable or unspecified (principal); Z3A.35 35 weeks gestation of pregnancy
CPT/HCPCS: 76805

== ENCOUNTER 2020-08-24 06:07 | Inpatient (IN) | payer MEDICAID ==
[2020-08-22 09:14] VITALS: BMI 31.0
[2020-08-24] MEDS ORDERED: CITRIC ACID-SODIUM CITRATE 15 ML CUP PO ONE (06:37)
[2020-08-24] MEDS ORDERED: LACTATED RINGERS 1,000 ML IV ONE (06:37)
[2020-08-24 07:41] LABS: Basophils % (A) 0 %; Eosinophils # (A) 0.1 k/uL (0-0.7); Eosinophils % (A) 1 %; HCT 37.6 % (34.0-46.0); HGB 12.4 gm/dL (11.4-16.0); Lymphocytes # (A) 2.2 k/uL (1.0-4.8); Lymphocytes % (A) 28 %; MCH 26.8 pg (25.0-35.0); MCV 81.4 fL (80.0-100.0); Mean Platelet Volume 9.9; Monocytes # (A) 0.4 k/uL (0-1.0); Monocytes % (A) 5 %; Neutrophils % (A) 65 %; Platelet Count 184 k/uL (150-450); RBC 4.62 m/uL (3.80-5.40); RDW 15.5 % (11.5-15.5); WBC 7.8 k/uL (3.8-10.6)
[2020-08-24] MEDS ORDERED: MORPHINE SULFATE (PF) 0.3 MG/0.3 ML SYR ONE (08:00)
[2020-08-24] MEDS ORDERED: WATER FOR INJECTION, STERILE 10 ML VIAL IV ONE (08:00)
[2020-08-24] MEDS ORDERED: ePHEDrine SULFATE/0.9% NACL/PF 50 MG/5 ML SYRINGE IV ONE (08:00)
[2020-08-24] MEDS ORDERED: ONDANSETRON 4 MG/2 ML VIAL ONE (08:00)
[2020-08-24] MEDS ORDERED: KETOROLAC 15 MG/ML 1 ML VIAL ONE (08:00)
[2020-08-24] MEDS ORDERED: OXYTOCIN 10 UNIT/ML 1 ML VIAL ONE (08:00)
[2020-08-24] MEDS ORDERED: LANOLIN CREAM 5 GM TUBE TOPICAL PRN (08:46)
[2020-08-24] MEDS ORDERED: ZOLPIDEM 5 MG TAB PO PRN (08:46)
[2020-08-24] MEDS ORDERED: SIMETHICONE 80 MG CHEWABLE PO PRN (08:46)
[2020-08-24] MEDS ORDERED: diphenhydrAMINE 50 MG CAP PO PRN (08:46)
[2020-08-24] MEDS ORDERED: diphenhydrAMINE 50 MG/ML 1 ML VIAL IVP PRN ×2 (08:46)
[2020-08-24] MEDS ORDERED: diphenhydrAMINE 25 MG CAP PO PRN (08:46)
[2020-08-24] MEDS ORDERED: NALOXONE 0.4 MG/ML 1 ML VIAL IV PRN (08:46)
[2020-08-24] MEDS ORDERED: ONDANSETRON 4 MG/2 ML VIAL IVP PRN (08:46)
[2020-08-24] MEDS ORDERED: METOCLOPRAMIDE 5 MG/ML 2 ML VIAL IVP PRN (08:46)
--- NOTE | 2020-08-24 08:50 | P.OP ---
Date of Procedure: 08/24/20 Preoperative Diagnosis: 1. at 39 weeks 2. previous injury during vaginal 3. low lying placenta Postoperative Diagnosis: 1. at 39 weeks 2. previous injury during vaginal 3. low lying placenta Procedure(s) Performed: Primary low transverse Anesthesia: spinal Surgeon: Roshni Lacy High Scaler #1: Everton Benjamin Estimated Blood Loss (ml): 630 IV fluids (ml): 1,000 Urine output (ml): 100 Pathology: none sent Condition: stable Disposition: floor Operative Findings: viable . 9,9, weight 7#15oz Description of Procedure: Patient was taken to the operating room where spinal anesthesia was found be adequate. She was prepped and draped in normal sterile fashion in dorsal supine position with a leftward tilt. Pfannenstiel skin incision was made the scalpel and carried through to the underlying layer of fascia with the scalpel. Fascia was incised in midline and carried bilaterally with the Weaver scissors. The superior aspect of the fascial incision was grasped with Jenny clamps elevated and the underlying rectus muscles dissected off with the Weaver's. Attention was then turned to inferior aspect of same incision which in a similar fashion was grasped tented up and the underlying rectus muscles dissected off with the Weaver's. The rectus muscles were the midline and the peritoneum was identified tented up and entered sharply with the scalpel. The incision was extended superiorly and inferiorly with good visualization of the bladder. The bladder blade was inserted and the vesicouterine peritoneum was incised the Metzenbaums then carried bilaterally and bladder flap created digitally. A low transverse incision was then made on the uterus with the scalpel. This was carried bilaterally and digital manner. 's head delivered atraumatically, nose and mouth bulb suctioned, cord clamped and cut, handed off to waiting nurses. Apgars 8,9, weight 7 lbs. 15 oz. Placenta delivered manually, intact with three-vessel cord. The uterus is exteriorized and cleared of all clots and debris. The uterine incision was closed with 0 Vicryl in a running locked fashion. Second layer of the same sutures used in imbricating fashion to obtain excellent hemostasis. Bladder flap was then reapproximated using 2-0 Vicryl in a running fashion. Both ovaries and tubes appeared normal. The uterus was placed back into the abdomen. The peritoneum was reapproximated using 2-0 Vicryl in a running fashion. The muscles were reapproximated using 2- 0 Vicryl in interrupted fashion. The fascia was reapproximated using 0 Vicryl in a running fashion. The subcutaneous tissues closed with 3-0 Vicryl running fashion. The skin was closed mckenna. Patient tolerated the procedure well, sponge and instrument counts were correct times 2 and she was taken to the recovery room in stable condition.
[2020-08-24] MEDS ORDERED: OXYTOCIN 30 UNITS/500 ML NS 30 UNIT in SALINE 1 500ML.BAG IV SCH (09:00)
[2020-08-24] MEDS: LACTATED RINGERS 1,000 ML IV SCH ×2 (09:25→16:08)
[2020-08-24] MEDS ORDERED: LORazepam 2 MG/ML INJ IV PRN ×2 (11:07→11:12)
--- NOTE | 2020-08-24 12:17 | P.HPOB ---
History of Present Illness H&P Date: 08/24/20 Chief Complaint: primary low transverse 29 yo at 39 weeks presents for primary low transverse . She had a placenta previa with this and also had a low back injury with the last vaginal delivery as well as a fourth degree laceration. Review of Systems All systems: negative Constitutional: Denies chills, Denies fever Eyes: denies blurred vision, denies pain Ears, nose, mouth and throat: Denies headache, Denies sore throat Cardiovascular: Denies chest pain, Denies shortness of breath Respiratory: Denies cough Gastrointestinal: Denies abdominal pain, Denies diarrhea, Denies nausea, Denies vomiting Genitourinary: Denies dysuria, Denies hematuria Musculoskeletal: Denies myalgias Integumentary: Denies pruritus, Denies rash Neurological: Denies numbness, Denies weakness Psychiatric: Denies anxiety, Denies depression Endocrine: Denies fatigue, Denies weight change Past Medical History Past Medical History: Asthma Additional Past Medical History / Comment(s): Obstetric history: This is her 2nd . vag delivery with 1st She's had care with me since the first trimester. Her blood type is A+, antibodies negative, rubella immune, Hepatitis B-, GBS negative, HIV nonreactive. History of Any Multi-Drug Resistant Organisms: None Reported Past Surgical History: Back Surgery, Orthopedic Surgery Additional Past Surgical History / Comment(s): tumor removed from left leg 2011.-. CYST REMOVED FROM RT WRIST X 2. L5 S1 back surgery Past Anesthesia/Blood Transfusion Reactions: No Reported Reaction Past Psychological History: No Psychological Hx Reported Smoking Status: Never smoker Past Alcohol Use History: None Reported Past Drug Use History: None Reported - Past Family History Mother Family Medical History: Cancer, Diabetes Mellitus Additional Family Medical History / Comment(s): PPH mother and great grandmother. Colon and cervical cancer. Medications and Allergies Home Medications Medication Instructions Recorded Confirmed Type Nyn-Qvxa-Rorgu Acid 1 cap PO DAILY 09/11/17 08/24/20 History [-U Capsule (formulary)] Allergies Allergy/AdvReac Type Severity Reaction Status Date / Time clarithromycin [From Biaxin] Allergy Rash/Hives Verified 08/24/20 06:32 fluconazole [From Diflucan] Allergy Rash/Hives Verified 08/24/20 06:32 pseudoephedrine Allergy Rash/Hives Verified 08/24/20 06:32 [From Sudafed] Sulfa (Sulfonamide Allergy Rash/Hives Verified 08/24/20 06:32 Antibiotics) sulfamethoxazole Allergy Rash/Hives Verified 08/24/20 06:32 [From Bactrim] trimethoprim [From Bactrim] Allergy Rash/Hives Verified 08/24/20 06:32 Exam Osteopathic Statement: *. No significant issues noted on an osteopathic structural exam other than those noted in the History and Physical/Consult. Vital Signs Temp Pulse Resp BP Pulse Ox 08/24/20 11:44 97.2 F L 08/24/20 11:31 95.9 F L 79 18 111/61 08/24/20 11:30 95.5 F L 71 18 120/64 100 08/24/20 10:45 95.9 F L 79 18 111/61 99 08/24/20 10:15 95.7 F L 58 L 18 110/56 99 08/24/20 09:46 72 18 108/59 99 08/24/20 09:30 67 18 104/56 08/24/20 09:15 82 18 104/64 99 08/24/20 09:00 77 18 107/64 08/24/20 08:45 96.2 F L 82 18 118/67 100 08/24/20 06:43 96.9 F L 83 17 130/71 99 Intake and Output 08/23/20 08/24/20 08/24/20 22:59 06:59 14:59 Output Total 930 Balance -930 Output: Urine 300 Estimated Blood Loss 630 Other: Weight 82.1 kg HEart: RRR Lungs: CTAB Abdomen: soft, nontender Extremeties: neg reuben's Results Result Diagrams: 08/24/20 06:30 Assessment and Plan (1) Fourth degree laceration of perineum during delivery, Current Visit: No Status: Acute Code(s): O70.3 - FOURTH DEGREE PERINEAL LACERATION DURING DELIVERY SNOMED Code(s): 810924859 (2) 39 weeks gestation of Current Visit: Yes Status: Acute Code(s): Z3A.39 - 39 WEEKS GESTATION OF SNOMED Code(s): 76243488 Plan: 1. primary low transverse
[2020-08-24] MEDS: ACETAMINOPHEN TAB 500 MG TAB PO SCH ×2 (12:27→19:58)
[2020-08-24] MEDS: KETOROLAC 15 MG/ML 1 ML VIAL IVP SCH ×2 (16:06→22:27)
[2020-08-24] MEDS: SENNOSIDES-DOCUSATE SODIUM 1 EACH TAB PO SCH (19:57)
[2020-08-25] MEDS: ACETAMINOPHEN TAB 500 MG TAB PO SCH ×5 (00:55→21:42)
[2020-08-25] MEDS: KETOROLAC 15 MG/ML 1 ML VIAL IVP SCH (04:31)
[2020-08-25 08:15] LABS: Basophils % (A) 0 %; Eosinophils % (A) 1 %; HGB 10.5 gm/dL (11.4-16.0); Lymphocytes # (A) 2.2 k/uL (1.0-4.8); Lymphocytes % (A) 24 %; MCH 27.1 pg (25.0-35.0); MCHC 32.9 g/dL (31.0-37.0); MCV 82.3 fL (80.0-100.0); Mean Platelet Volume 9.9; Monocytes # (A) 0.5 k/uL (0-1.0); Monocytes % (A) 5 %; Neutrophils # (A) 6.5 k/uL (1.3-7.7); Neutrophils % (A) 70 %; Platelet Count 173 k/uL (150-450); RBC 3.89 m/uL (3.80-5.40); RDW 15.8 % (11.5-15.5); WBC 9.3 k/uL (3.8-10.6)
--- NOTE | 2020-08-25 08:38 | P.PNOBGPC ---
Subjective - Subjective Principal diagnosis: Status post primary low transverse postop day #1 Interval history: Patient seen and examined. Denies nausea, vomiting, chest pain, shortness of breath or calf pain. Patient reports: Reports appetite normal, Reports voiding normally, Reports pain well controlled, Reports ambulating normally : doing well Objective - Vital Signs Latest vital signs: Vital Signs Temp Pulse Resp BP Pulse Ox 08/25/20 04:00 98.0 F 77 16 92/50 100 08/25/20 00:00 98.2 F 77 16 93/84 08/24/20 20:00 97.8 F 78 16 102/58 100 08/24/20 15:29 97.7 F 75 18 112/76 99 08/24/20 13:06 96.1 F L 67 18 124/75 99 08/24/20 12:27 97.3 F L 08/24/20 11:44 97.2 F L 08/24/20 11:31 95.9 F L 79 18 111/61 08/24/20 11:30 95.5 F L 71 18 120/64 100 08/24/20 10:45 95.9 F L 79 18 111/61 99 08/24/20 10:15 95.7 F L 58 L 18 110/56 99 08/24/20 09:46 72 18 108/59 99 08/24/20 09:30 67 18 104/56 08/24/20 09:15 82 18 104/64 99 08/24/20 09:00 77 18 107/64 08/24/20 08:45 96.2 F L 82 18 118/67 100 Intake and Output 08/24/20 08/25/20 08/25/20 22:59 06:59 14:59 Output Total 1400 Balance -1400 Output: Urine 1400 Other: # Voids 1 1 - Exam Lungs: bilateral: normal Chest: Normal S1, Normal S2 Extremities: Present: normal Abdomen: Present: normal appearance, soft. Absent: distention, tenderness Incision: Present: normal, dry, intact Uterus: Present: normal, firm - Labs Labs: Abnormal Lab Results - Last 24 Hours (Table) 08/25/20 Range/Units 07:18 Hgb 10.5 L (11.4-16.0) gm/dL Hct 32.0 L (34.0-46.0) % RDW 15.8 H (11.5-15.5) % Assessment and Plan (1) Fourth degree laceration of perineum during delivery, Current Visit: No Status: Resolved Code(s): O70.3 - FOURTH DEGREE PERINEAL LACERATION DURING DELIVERY SNOMED Code(s): 858050130 (2) 39 weeks gestation of Current Visit: Yes Status: Resolved Code(s): Z3A.39 - 39 WEEKS GESTATION OF SNOMED Code(s): 17644155 (3) Status post primary low transverse section Current Visit: Yes Status: Acute Code(s): Z98.891 - HISTORY OF UTERINE SCAR FROM PREVIOUS SURGERY SNOMED Code(s): 218779168 Plan: 1. Increase ambulation 2. Regular diet 3. By mouth pain medication
[2020-08-25] MEDS: SENNOSIDES-DOCUSATE SODIUM 1 EACH TAB PO SCH ×2 (10:21→15:01)
[2020-08-25] MEDS: IBUPROFEN 600 MG TAB PO SCH ×2 (12:37→18:16)
[2020-08-26] MEDS: ACETAMINOPHEN TAB 500 MG TAB PO SCH ×2 (03:04→09:32)
[2020-08-26] MEDS: IBUPROFEN 600 MG TAB PO SCH ×2 (06:13)
[2020-08-26] MEDS: SENNOSIDES-DOCUSATE SODIUM 1 EACH TAB PO SCH (09:05)
--- NOTE | 2020-08-26 09:08 | P.DS ---
Providers Date of admission: 08/24/20 06:07 Expected date of discharge: 08/26/20 Attending physician: Roshni Lacy Primary care physician: Stated None - Discharge Diagnosis(es) (1) 39 weeks gestation of Current Visit: Yes Status: Resolved (2) Status post primary low transverse section Current Visit: Yes Status: Acute Hospital Course: Patient presented for primary low transverse . She underwent this procedure without complication. Her postoperative course was uncomplicated. She is tolerating regular diet, passing flatus 30 and ambulating without difficulty. Her pain is controlled with Motrin and Tylenol. Incision is clean, dry, intact. She'll be discharged home postoperative day #2 in stable condition to follow-up with me in one week. Plan - Discharge Summary Discharge Rx Participant: No New Discharge Prescriptions: New Ibuprofen [Motrin] 600 mg PO Q6HR #40 tab No Action Tnh-Raxd-Jzijs Acid [-U Capsule (formulary)] 1 cap PO DAILY Discharge Medication List Poa-Drzw-Ancvj Acid [-U Capsule (formulary)] 1 cap PO DAILY 09/11/17 [History] Ibuprofen [Motrin] 600 mg PO Q6HR #40 tab 08/26/20 [Rx] Follow up Appointment(s)/Referral(s): Roshni Lacy DO [Doctor of Osteopathic Medicine] - 1 Week Discharge Disposition: HOME SELF-CARE
[2020-08-26 09:19] VITALS: BP 117/65; PULSE 81; RESP 18; TEMP 98.3
== END 2020-08-26 10:59 | disposition home or self-care (01) | DRG 788 ==
LOC: 4FBP 06:07
PROVIDERS: ADMIT Obstetrics & Gynecology; ATTEND Obstetrics & Gynecology
PROC: 10D00Z1 Extraction of Products of Conception, Low, Open Approach (ICD-10-PCS; principal; 2020-08-24 08:00)
DX: O44.03 Complete placenta previa NOS or without hemorrhage, third trimester (principal); O99.52 Diseases of the respiratory system complicating childbirth; J45.909 Unspecified asthma, uncomplicated; O09.293 Supervision of pregnancy with other poor reproductive or obstetric history, third trimester; Z3A.39 39 weeks gestation of pregnancy; Z37.0 Single live birth; Z80.49 Family history of malignant neoplasm of other genital organs; Z83.3 Family history of diabetes mellitus; Z80.0 Family history of malignant neoplasm of digestive organs; Z88.1 Allergy status to other antibiotic agents; Z88.2 Allergy status to sulfonamides
CPT/HCPCS: 85025; 86850; 86900; 86901

== ENCOUNTER → 2021-02-09 | Outpatient (CLI) | payer BC, OTHER | END | disposition home or self-care (01) | LOC: LABWHC1 09:59 | PROVIDERS: ATTEND Emergency Medicine | DX: Z20.822 Contact with and (suspected) exposure to COVID-19 (principal) | CPT/HCPCS: 87635 ==

== ENCOUNTER → 2021-02-10 | Outpatient (CLI) | payer BC, OTHER | END | disposition home or self-care (01) | LOC: LABWHC1 10:37 | PROVIDERS: ATTEND Emergency Medicine | DX: Z20.822 Contact with and (suspected) exposure to COVID-19 (principal) | CPT/HCPCS: 87635 ==

== ENCOUNTER 2022-06-05 19:00 | Outpatient (CLI) | payer BC ==
[2022-06-05] MEDS ORDERED: ONDANSETRON 4 MG/2 ML VIAL IVP STA (19:28)
[2022-06-05] MEDS ORDERED: LACTATED RINGERS 1,000 ML IV ONE (19:30)
[2022-06-05 20:47] LABS: Appearance,Urine Cloudy (Clear); Bacteria,Urine Occasional /hpf; Bilirubin,Urine Negative (Negative); Blood,Urine Negative (Negative); Budding Yeast,Urine Occasional /hpf; Color,Urine Yellow; Glucose,Urine (UA) Negative (Negative); Ketones,Urine 1+ (Negative); Leukocyte Esterase,Urine Small (Negative); Mucus,Urine Rare /hpf; Nitrite,Urine Negative (Negative); Protein,Urine Negative (Negative); RBC,Urine 1 /hpf (0-5); Specific Gravity,Urine 1.025 (1.001-1.035); Squamous Epithelial Cell,Urine 1 /hpf (0-4); Urobilinogen,Urine <2.0 mg/dL (<2.0); WBC,Urine 2 /hpf (0-5)
[2022-06-05 21:13] VITALS: BP 135/68; PULSE 99; RESP 16; TEMP 97.1
--- NOTE | 2022-06-10 19:27 | P.MSEPDOC ---
Presenting Problems - Arrival Data Date of Arrival on Unit: 06/05/22 Time of Arrival on Unit: 19:00 Mode of Transport: Ambulatory - Complaint OB-Reason for Admission/Chief Complaint: Hyperemesis Comment: Patient 12 3/7 weeks presents to triage for hyperemesis for IV hydration. Medical History - Information : 3 Para: 2 - Gestational Age Gestational Age by KENNEDY (wks/days): 12 Weeks and 3 Days - History Complications: Preeclampsia Review of Systems - Review of Systems Constitutional: No problems Breast: No problems ENT: No problems Cardiovascular: No problems Respiratory: No problems Gastrointestinal: No problems Genitourinary: No problems Musculoskeletal: No problems Neurological: No problems Skin: No problems Vital Signs - Temperature Temperature: 97.1 F Temperature Source: Temporal Artery Scan - Pulse Pulse Oximetery Pulse Rate: 99 Pulse Assessment Method: Pulse Oximetry - Respirations Respiratory Rate: 16 Oxygen Delivery Method: Room Air O2 Sat by Pulse Oximetry: 100 - Blood Pressure Right Arm Blood Pressure: 135/68 Blood Pressure Mean: 90 Blood Pressure Source: Automatic Cuff Physician Notification - Physician Notified Physician Notified Date: 06/05/22 Physician Notified Time: 19:17 Physician: Alicia Riojas Order Received: Yes (discharge) Maternal Triage Index - Stat/Priority 1 Stat Priority 1: No - Urgent/Priority 2 Urgent Priority 2: No - Prompt/Priority 3 Prompt Priority 3: No - Non-Urgent/Priority 4 Non-Urgent Priority 4: Yes Criteria Met for Priority 4: Patient 12 3/7 weeks presents to triage for hyperemesis for IV hydration. Disposition - Disposition OB Disposition: Discharge to home I agree with the RN Medical Screening Exam: Yes Case reviewed; plan agreed upon as documented in EMR&OBIX.: Yes Diagnosis: MILD HYPEREMESIS GRAVIDARUM
== END 2022-06-05 21:15 ==
LOC: FBPOP 19:00
PROVIDERS: ATTEND Obstetrics & Gynecology
DX: O21.0 Mild hyperemesis gravidarum (principal); Z3A.12 12 weeks gestation of pregnancy; Z88.1 Allergy status to other antibiotic agents; Z88.2 Allergy status to sulfonamides; Z88.8 Allergy status to other drugs, medicaments and biological substances
CPT/HCPCS: 99214; 96361; 81001; J2405

== ENCOUNTER → 2022-09-16 | Outpatient (CLI) | payer BC ==
[2022-09-16 16:29] LABS: HCT 38.1 % (37.2-46.3); HGB 11.7 g/dL (12.0-15.0); MCH 27.5 pg (27.0-32.0); MCHC 30.7 g/dL (32.0-37.0); MCV 89.6 fL (80.0-97.0); NRBC Per 100 WBC 0 /100 WBCS (0.0-0.0); Platelet Count 198 X 10*3/uL (140-440); RBC 4.25 X 10*6/uL (4.10-5.20); RDW 14.1 % (11.5-14.5); WBC 7.66 X 10*3/uL (4.50-10.00)
== END | disposition home or self-care (01) ==
LOC: LABWHC1 09:14
PROVIDERS: ATTEND Obstetrics & Gynecology
DX: Z34.82 Encounter for supervision of other normal pregnancy, second trimester (principal); Z3A.00 Weeks of gestation of pregnancy not specified
CPT/HCPCS: 36415; 82947; 82950; 85027

== ENCOUNTER 2022-11-05 18:47 | Outpatient (CLI) | payer BC ==
[2022-11-05 19:50] VITALS: BP 116/76; PULSE 96; RESP 16; TEMP 97.6
--- NOTE | 2022-11-06 07:27 | P.MSEPDOC ---
Presenting Problems - Arrival Data Date of Arrival on Unit: 11/05/22 Time of Arrival on Unit: 18:47 Mode of Transport: Ambulatory - Complaint OB-Reason for Admission/Chief Complaint: Pain Comment: pt states she had a strong painful contraction in her back while at work. Medical History - Information : 3 Para: 2 Term: 2 : 0 Abortions: Spontaneous or Elective: 0 Number of Living Children: 2 - Gestational Age Gestational Age by KENNEDY (wks/days): 34 Weeks and 2 Days Review of Systems - Review of Systems Constitutional: No problems Breast: No problems ENT: No problems Cardiovascular: No problems Respiratory: No problems Gastrointestinal: No problems Genitourinary: No problems Musculoskeletal: No problems Neurological: No problems Skin: No problems Vital Signs - Temperature Temperature: 97.6 F Temperature Source: Oral - Pulse Pulse Oximetery Pulse Rate: 96 Pulse Assessment Method: Auscultation - Respirations Respiratory Rate: 16 Oxygen Delivery Method: Room Air O2 Sat by Pulse Oximetry: 99 - Blood Pressure Right Arm Blood Pressure: 116/76 Blood Pressure Mean: 89 Blood Pressure Source: Automatic Cuff Medical Screen Scoring - Cervical Exam Dilation (cm): 0 Effacement (%): 0 Membranes: Intact - Uterine Contractions Intensity: Mild Resting: Soft to palpation - Assessment - Baby A Baseline FHR: 130 Heart Rate - NICHD Category: Category I (Normal) NST: Reactive Physician Notification - Physician Notified Physician Notified Date: 11/05/22 Physician Notified Time: 19:30 Physician: Everton Benjamin New Order Received: Yes (SVE and then d/c home if not dilated) Maternal Triage Index - Maternal Triage Index Presenting for scheduled procedure w/no complaint: No - Stat/Priority 1 Stat Priority 1: No - Urgent/Priority 2 Urgent Priority 2: No - Prompt/Priority 3 Prompt Priority 3: No - Non-Urgent/Priority 4 Non-Urgent Priority 4: Yes Criteria Met for Priority 4: pt states she had one big contraction while at work Disposition - Disposition OB Disposition: Discharge to home Discharge Date: 11/05/22 Discharge Time: 19:40 I agree with the RN Medical Screening Exam: Yes Case reviewed; plan agreed upon as documented in EMR&OBIX.: Yes Diagnosis: FALSE LABOR BEFORE 37 COMPLETED WEEKS OF GEST, THIRD TRI
== END 2022-11-05 19:40 | disposition home or self-care (01) ==
LOC: FBPOP 18:47
PROVIDERS: ATTEND Obstetrics & Gynecology
DX: O47.03 False labor before 37 completed weeks of gestation, third trimester (principal); Z3A.34 34 weeks gestation of pregnancy; Z88.1 Allergy status to other antibiotic agents; Z88.8 Allergy status to other drugs, medicaments and biological substances; Z88.2 Allergy status to sulfonamides
CPT/HCPCS: 59025; 99213

== ENCOUNTER 2022-12-12 06:20 | Inpatient (IN) | payer BC ==
[2022-12-08 09:29] VITALS: BMI 31.4
[2022-12-12] MEDS: LACTATED RINGERS 1,000 ML IV SCH ×4 (06:30→15:10)
[2022-12-12] MEDS ORDERED: miSOPROStoL 200 MCG TAB PO PRN (06:43)
[2022-12-12] MEDS ORDERED: METHYLERGONOVINE 0.2 MG/ML 1 ML AMP IM PRN (06:43)
[2022-12-12] MEDS ORDERED: TRANEXAMIC 1,000 MG/100ML-NACL 1,000 MG in EMPTY BAG 1 BAG IV PRN (06:43)
[2022-12-12] MEDS ORDERED: CARBOPROST TROMETHAMINE 250 MCG/ML 1 ML AMP IM PRN (06:43)
[2022-12-12] MEDS ORDERED: CITRIC ACID-SODIUM CITRATE 15 ML CUP PO ONE (06:43)
[2022-12-12] MEDS ORDERED: OXYTOCIN 10 UNIT/ML 1 ML VIAL IM PRN (06:43)
[2022-12-12] MEDS ORDERED: KETOROLAC 15 MG/ML 1 ML VIAL ONE (08:00)
[2022-12-12] MEDS ORDERED: ONDANSETRON 4 MG/2 ML VIAL ONE (08:00)
[2022-12-12] MEDS ORDERED: MORPHINE SULFATE (PF) 0.3 MG/0.3 ML SYR ONE (08:00)
[2022-12-12] MEDS ORDERED: OXYTOCIN 10 UNIT/ML 1 ML VIAL ONE (08:00)
[2022-12-12] MEDS ORDERED: OXYTOCIN 30 UNITS/500 ML NS BAG IV ONE (08:00)
[2022-12-12] MEDS ORDERED: ePHEDrine 50 MG/ML 1 ML VIAL ONE (08:00)
[2022-12-12 08:24] LABS: Anisocytosis Slight; Basophils % (A) 0 %; Eosinophils % (A) 1 %; HCT 35.7 % (34.0-46.0); HGB 11.5 gm/dL (11.4-16.0); Hypochromasia Slight; Lymphocytes # (A) 1.9 k/uL (1.0-4.8); Lymphocytes % (A) 32 %; MCH 25.7 pg (25.0-35.0); MCHC 32.3 g/dL (31.0-37.0); MCV 79.5 fL (80.0-100.0); Mean Platelet Volume 11.4; Monocytes # (A) 0.3 k/uL (0-1.0); Monocytes % (A) 5 %; Neutrophils # (A) 3.6 k/uL (1.3-7.7); Neutrophils % (A) 61 %; Platelet Count 142 k/uL (150-450); RBC 4.49 m/uL (3.80-5.40)
[2022-12-12] MEDS ORDERED: OXYTOCIN 30 UNITS/500 ML NS 30 UNIT in SALINE 1 500ML.BAG IV SCH (10:30)
[2022-12-12] MEDS ORDERED: ZOLPIDEM 5 MG TAB PO PRN (11:31)
[2022-12-12] MEDS ORDERED: diphenhydrAMINE 25 MG CAP PO PRN (11:31)
[2022-12-12] MEDS ORDERED: METOCLOPRAMIDE 5 MG/ML 2 ML VIAL IVP PRN (11:31)
[2022-12-12] MEDS ORDERED: diphenhydrAMINE 50 MG CAP PO PRN (11:31)
[2022-12-12] MEDS ORDERED: ONDANSETRON 4 MG/2 ML VIAL IVP PRN (11:31)
[2022-12-12] MEDS ORDERED: NALOXONE 0.4 MG/ML 1 ML VIAL IV PRN (11:31)
[2022-12-12] MEDS ORDERED: diphenhydrAMINE 50 MG/ML 1 ML VIAL IVP PRN ×2 (11:31)
[2022-12-12] MEDS: ACETAMINOPHEN TAB 500 MG TAB PO SCH ×2 (12:37→18:34)
[2022-12-12] MEDS: KETOROLAC 15 MG/ML 1 ML VIAL IVP SCH ×2 (15:10→22:26)
[2022-12-12] MEDS: SENNOSIDES-DOCUSATE SODIUM 1 EACH TAB PO SCH (19:58)
[2022-12-12] MEDS: PRENATAL VIT-IRON-FOLIC ACID 1 EACH TABLET PO SCH (21:24)
[2022-12-13] MEDS: ACETAMINOPHEN TAB 500 MG TAB PO SCH ×4 (00:09→18:49)
[2022-12-13] MEDS: KETOROLAC 15 MG/ML 1 ML VIAL IVP SCH ×3 (04:28→18:30)
[2022-12-13 05:32] LABS: Anisocytosis Slight; Basophils % (A) 0 %; Eosinophils % (A) 1 %; HCT 29.1 % (34.0-46.0); Hypochromasia Slight; Lymphocytes # (A) 1.9 k/uL (1.0-4.8); Lymphocytes % (A) 25 %; MCHC 33.9 g/dL (31.0-37.0); MCV 79.5 fL (80.0-100.0); Monocytes # (A) 0.4 k/uL (0-1.0); Monocytes % (A) 5 %; Neutrophils # (A) 5.3 k/uL (1.3-7.7); Neutrophils % (A) 68 %; Platelet Count 141 k/uL (150-450); RBC 3.66 m/uL (3.80-5.40); RDW 16.1 % (11.5-15.5); WBC 7.7 k/uL (3.8-10.6)
[2022-12-13 05:33] LABS: HGB 9.9 gm/dL (11.4-16.0)
--- NOTE | 2022-12-13 07:31 | P.PN ---
Progress Note - Text Progress Note Date: 12/13/22 Patient doing well. Ambulating w/o paresthesia or weakness. Denies headache. Minimal pruritis. Pain well controlled. Back - spinal site c/d A/P POD#1 s/p w/ spinal duramorph - doing well
[2022-12-13] MEDS: IBUPROFEN 600 MG TAB PO SCH ×3 (10:32→23:09)
[2022-12-13] MEDS: PRENATAL VIT-IRON-FOLIC ACID 1 EACH TABLET PO SCH (10:33)
[2022-12-13] MEDS: SENNOSIDES-DOCUSATE SODIUM 1 EACH TAB PO SCH ×2 (10:33→23:09)
--- NOTE | 2022-12-13 12:45 | P.PNOBGPC ---
Subjective - Subjective Principal diagnosis: Status post repeat section postoperative day #1 Interval history: Patient is doing well. She is breast-feeding. Lochia is decreasing. She is passing some flatus but no bowel movement yet. Her pain is fairly well controlled at this time. Patient reports: Reports appetite normal, Reports voiding normally, Reports pain well controlled, Reports ambulating normally [place]: doing well, nursing well Objective - Vital Signs Latest vital signs: Vital Signs Temp Pulse Resp BP Pulse Ox 12/13/22 08:00 98 F 72 18 99/62 12/13/22 04:00 98.1 F 68 16 93/53 12/13/22 00:00 98.0 F 62 16 107/68 12/12/22 20:00 98.0 F 79 16 106/68 12/12/22 16:00 98.0 F 63 16 122/64 99 Intake and Output 12/12/22 12/13/22 12/13/22 22:59 06:59 14:59 Output Total 1150 Balance -1150 Output: Urine 1150 Uretheral ([place]) 300 Other: # Voids 1 1 1 - Exam Extremities: Present: normal. Absent: tenderness, edema Abdomen: Present: normal appearance, soft (Positive bowel sounds 4). Absent: distention, tenderness Incision: Present: normal, dry, intact. Absent: erythematous Uterus: Present: normal, firm. Absent: tenderness - Labs Labs: Abnormal Lab Results - Last 24 Hours (Table) 12/13/22 Range/Units 05:07 RBC 3.66 L (3.80-5.40) m/uL Hgb 9.9 L D (11.4-16.0) gm/dL Hct 29.1 L (34.0-46.0) % MCV 79.5 L (80.0-100.0) fL RDW 16.1 H (11.5-15.5) % Plt Count 141 L (150-450) k/uL Assessment and Plan Assessment: Status post repeat low transverse section postoperative day #1 Plan: Patient is doing well. She is working on breast-feeding. Continue with postoperative and care today. Anticipate discharge home tomorrow.
[2022-12-14 00:58] VITALS: RESP 16
[2022-12-14] MEDS: KETOROLAC 15 MG/ML 1 ML VIAL IVP SCH ×2 (01:00→06:21)
[2022-12-14] MEDS: ACETAMINOPHEN TAB 500 MG TAB PO SCH ×2 (04:06→10:08)
[2022-12-14] MEDS: IBUPROFEN 600 MG TAB PO SCH (06:22)
[2022-12-14 08:33] VITALS: BP 109/72; PULSE 61; TEMP 98.3
[2022-12-14] MEDS: SENNOSIDES-DOCUSATE SODIUM 1 EACH TAB PO SCH (08:37)
[2022-12-14] MEDS: PRENATAL VIT-IRON-FOLIC ACID 1 EACH TABLET PO SCH (10:08)
--- NOTE | 2022-12-14 11:43 | P.DS ---
Providers Date of admission: 12/12/22 06:20 Expected date of discharge: 12/14/22 Attending physician: Roshni Lacy Primary care physician: Stated None Hospital Course: This is a 32-year-old female 3 para 2 at 39-3/7 weeks who presented for scheduled repeat section. She underwent a repeat low transverse section with delivery of a viable male on 12/12/2022. She delivered a viable male with scores of 8 at 1 minute and 9 at 5 minutes and infant weight of 9 lbs. 6 oz. Her course and postoperative course have been uncomplicated. She is passing flatus and bowel movement. Her pain is fairly well controlled. Vital signs are stable. Abdomen is soft with fundus firm and nontender. Extremities show negative Homans. Incision is clean dry and intact with mckenna in place. Pressure is status post repeat low transverse section postoperative day #2. Plan is to discharge home today. Routine postoperative and instructions are given. Mckenna will be removed and Steri-Strips placed prior to discharge. Procedures: Repeat low transverse section on 12/12/2022 Patient Condition at Discharge: Stable Plan - Discharge Summary Discharge Rx Participant: No New Discharge Prescriptions: New Ibuprofen [Motrin] 600 mg PO Q6H #60 tab Continue Ldv-Sobc-Qhjwo Acid [-U Capsule (formulary)] 1 cap PO DAILY No Action Omeprazole 20 mg PO BID PRN PRN Reason: Indigestion Discharge Medication List Fcn-[id number]-[id number] Acid [-U Capsule (formulary)] 1 cap PO DAILY 09/11/17 [History] Omeprazole 20 mg PO BID PRN 12/08/22 [History] Ibuprofen [Motrin] 600 mg PO Q6H #60 tab 12/14/22 [Rx] Follow up Appointment(s)/Referral(s): Roshni Lacy DO [Doctor of Osteopathic Medicine] - 1 Week Activity/Diet/Wound Care/Special Instructions: Instructions 1. Do not begin any exercise program for 3 weeks. 2. Do not resume sexual relations for 3 weeks or longer if uncomfortable. 3. You may take tub baths or showers at any time. 4. You may use tampons if desired after 3 weeks. 5. Keep the area of episiotomy (stitches) clean and dry. 6. If you are not nursing, wear a good fitting, supportive bra during the day and limit fluid intake for at least 1 week to prevent breast engorgement. 7. Call the office, [phone], within the next week to make appointment for your 6 week checkup if it has not already been made. 8. Report any of the following occurrences to the doctor promptly: a. Heavy, excessive bleeding b. Chills, fever c. Burning or frequency of urination d. Pain or redness and breasts if nursing e. Increasing pain or swelling in episiotomy (stitches). In addition to the above instructions, the following additional should be followed: 1. No heavy lifting or straining (exercising) until after 6 week checkup. 2. Keep abdominal incision clean and dry: You may wear a dressing if more comfortable. 3. Make office appointment for 10 days after going home or as instructed by her doctor. Discharge Disposition: HOME SELF-CARE
--- NOTE | 2023-02-11 07:25 | P.HPOB ---
History of Present Illness H&P Date: 12/12/22 Chief Complaint: repeat low transverse 32 year old presents at 39 weeks 3 days for repeat low transverse c- section. Review of Systems All systems: negative Constitutional: Denies chills, Denies fever Eyes: denies blurred vision, denies pain Ears, nose, mouth and throat: Denies headache, Denies sore throat Cardiovascular: Denies chest pain, Denies shortness of breath Respiratory: Denies cough Gastrointestinal: Denies abdominal pain, Denies diarrhea, Denies nausea, Denies vomiting Genitourinary: Denies dysuria, Denies hematuria Musculoskeletal: Denies myalgias Integumentary: Denies pruritus, Denies rash Neurological: Denies numbness, Denies weakness Psychiatric: Denies anxiety, Denies depression Endocrine: Denies fatigue, Denies weight change Past Medical History Past Medical History: Asthma, GERD/Reflux History of Any Multi-Drug Resistant Organisms: None Reported Past Surgical History: Back Surgery, Section, Orthopedic Surgery Additional Past Surgical History / Comment(s): Tumor removed from left leg, CYST REMOVED FROM RT WRIST X2, L5-S1 back surgery. Past Anesthesia/Blood Transfusion Reactions: Previous Problems w/ Anesthesia Additional Past Anesthesia/Blood Transfusion Reaction / Comment(s): "With last Section temperature dropped to 95". Past Psychological History: No Psychological Hx Reported Smoking Status: Never smoker Past Alcohol Use History: None Reported Past Drug Use History: None Reported - Past Family History Mother Family Medical History: Cancer, Diabetes Mellitus Additional Family Medical History / Comment(s): PPH mother and great grandmother. Colon and cervical cancer. Medications and Allergies Home Medications Medication Instructions Recorded Confirmed Type Ypk-Jfdv-[id number] Acid 1 cap PO DAILY 09/11/17 12/08/22 History [-U Capsule (formulary)] Omeprazole 20 mg PO BID PRN 12/08/22 12/08/22 History Ibuprofen [Motrin] 600 mg PO Q6H #60 tab 12/14/22 Rx Allergies Allergy/AdvReac Type Severity Reaction Status Date / Time clarithromycin [From Biaxin] Allergy Rash/Hives Verified 12/12/22 06:43 fluconazole [From Diflucan] Allergy Rash/Hives Verified 12/12/22 06:43 pseudoephedrine Allergy Rash/Hives Verified 12/12/22 06:43 [From Sudafed] Sulfa (Sulfonamide Allergy Rash/Hives Verified 12/12/22 06:43 Antibiotics) sulfamethoxazole Allergy Rash/Hives Verified 12/12/22 06:43 [From Bactrim] trimethoprim [From Bactrim] Allergy Rash/Hives Verified 12/12/22 06:43 Exam Osteopathic Statement: *. No significant issues noted on an osteopathic structural exam other than those noted in the History and Physical/Consult. Heart: Regular rate and rhythm Lungs: Clear to auscultation bilaterally Abdomen: Soft, nontender Extremities: Negative Homans sign Results Result Diagrams: 12/13/22 05:07 Assessment and Plan (1) Previous section Status: Acute Code(s): Z98.891 - HISTORY OF UTERINE SCAR FROM PREVIOUS SURGERY SNOMED Code(s): 339505693 (2) 39 weeks gestation of Status: Resolved Code(s): Z3A.39 - 39 WEEKS GESTATION OF SNOMED Code(s): 07185863 Plan: 1. repeat low transverse
--- NOTE | 2023-02-11 07:27 | P.OP ---
Date of Procedure: 12/12/22 Preoperative Diagnosis: 1. previous 2. 39 weeks gestation Postoperative Diagnosis: same Procedure(s) Performed: repeat low transverse Anesthesia: spinal Surgeon: Roshni Lacy A And P Technician #1: Alicia Riojas Estimated Blood Loss (ml): 500 IV fluids (ml): 600 Urine output (ml): 100 Pathology: none sent Condition: stable Disposition: floor Operative Findings: viable male. Apgars 8,9 weight 9#6oz Description of Procedure: Patient was taken to the operating room where spinal anesthesia was found be adequate. She was prepped and draped in normal sterile fashion in dorsal supine position with a leftward tilt. Pfannenstiel skin incision was made the scalpel and carried through to the underlying layer of fascia with the scalpel. Fascia was incised in midline and carried bilaterally with the Weaver scissors. The superior aspect of the fascial incision was grasped with [place] clamps elevated and the underlying rectus muscles dissected off with the Weaver's. Attention was then turned to inferior aspect of same incision which in a similar fashion was grasped tented up and the underlying rectus muscles dissected off with the Weaver's. The rectus muscles were the midline and the peritoneum was identified tented up and entered sharply with the scalpel. The incision was extended superiorly and inferiorly with good visualization of the bladder. The bladder blade was inserted and the vesicouterine peritoneum was incised the Metzenbaums then carried bilaterally and bladder flap created digitally. A low transverse incision was then made on the uterus with the scalpel. This was carried bilaterally and digital manner. Infant's head delivered atraumatically, nose and mouth bulb suctioned, cord clamped and cut, handed off to waiting nurses. Apgars 8,9, weight 9 lbs. 6 oz. Placenta delivered manually, intact with three-vessel cord. The uterus is exteriorized and cleared of all clots and debris. The uterine incision was closed with 0 Vicryl in a running locked fashion. Second layer of the same sutures used in imbricating fashion to obtain excellent hemostasis. Bladder flap was then reapproximated using 2-0 Vicryl in a running fashion. Both ovaries and tubes appeared normal. The uterus was placed back into the abdomen. The peritoneum was reapproximated using 2-0 Vicryl in a running fashion. The muscles were reapproximated using 2- 0 Vicryl in interrupted fashion. The fascia was reapproximated using 0 Vicryl in a running fashion. The subcutaneous tissues closed with 3-0 Vicryl running fashion. The skin was closed mckenna. Patient tolerated the procedure well, sponge and instrument counts were correct times 2 and she was taken to the recovery room in stable condition.
== END 2022-12-14 12:45 | disposition home or self-care (01) | DRG 788 ==
LOC: 4FBP 06:20
PROVIDERS: ADMIT Obstetrics & Gynecology; ATTEND Obstetrics & Gynecology
PROC: 10D00Z1 Extraction of Products of Conception, Low, Open Approach (ICD-10-PCS; principal; 2022-12-12 08:00)
DX: O34.211 Maternal care for low transverse scar from previous cesarean delivery (principal); O99.52 Diseases of the respiratory system complicating childbirth; O99.62 Diseases of the digestive system complicating childbirth; J45.909 Unspecified asthma, uncomplicated; K21.9 Gastro-esophageal reflux disease without esophagitis; Z79.899 Other long term (current) drug therapy; Z88.2 Allergy status to sulfonamides; Z88.8 Allergy status to other drugs, medicaments and biological substances; Z88.1 Allergy status to other antibiotic agents; Z3A.39 39 weeks gestation of pregnancy; Z37.0 Single live birth
CPT/HCPCS: 85025; 86850; 86900; 86901

== ENCOUNTER 2024-07-02 11:28 | Emergency (ER) | payer BC ==
[2024-07-02 11:33] VITALS: PULSE 77; RESP 20; TEMP 98.4
--- NOTE | 2024-07-02 11:53 | ED ---
Headache HPI - General Chief Complaint: Headache Stated Complaint: Headache,Neck pain Time Seen by Provider: 07/02/24 11:33 Source: patient, RN notes reviewed Mode of arrival: ambulatory Limitations: no limitations - History of Present Illness Initial Comments: This is a 33-year-old female who presents to the emergency department for a headache. States that it started 5 days ago. States that she almost always gets headaches shortly before her period starts. However, her period started 3 days ago and the headache has not gone away. She has tried vmsc-aae-bokqocy medication without any relief. States that she now has pain going into her neck/top of her back. States that it feels very tight. She went to her chiropractor who is usually able to crack her neck, but states that she had too much tension to do so. She initially went to urgent care and they sent her here for further evaluation. She is still able to fully move the head and neck, states that it just hurts and feels tight. Would not describe this as the worst headache of her life. Reports associated nausea and light/sound sensitivity. MD Complaint: headache, "migraine" - Related Data Home Medications Medication Instructions Recorded Confirmed RX: Dri-Rywi-Batux Acid 1 cap PO DAILY 09/11/17 12/08/22 [-U Capsule (formulary)] RX: Omeprazole 20 mg PO BID PRN 12/08/22 12/08/22 Previous Rx's Medication Instructions Recorded RX: Ibuprofen [Motrin] 600 mg PO Q6H #60 tab 12/14/22 Ketorolac [Toradol] 10 mg PO Q6HR PRN #15 tab 07/02/24 Ondansetron Odt [Zofran Odt] 4 mg PO Q8HR PRN #15 tab 07/02/24 Allergies Allergy/AdvReac Type Severity Reaction Status Date / Time clarithromycin [From Biaxin] Allergy Rash/Hives Verified 07/02/24 11:33 fluconazole [From Diflucan] Allergy Rash/Hives Verified 07/02/24 11:33 pseudoephedrine Allergy Rash/Hives Verified 07/02/24 11:33 [From Sudafed] Sulfa (Sulfonamide Allergy Rash/Hives Verified 07/02/24 11:33 Antibiotics) sulfamethoxazole Allergy Rash/Hives Verified 07/02/24 11:33 [From Bactrim] trimethoprim [From Bactrim] Allergy Rash/Hives Verified 07/02/24 11:33 Review of Systems ROS Statement: Those systems with pertinent positive or pertinent negative responses have been documented in the HPI. ROS Other: All systems not noted in ROS Statement are negative. Past Medical History Past Medical History: Asthma Additional Past Medical History / Comment(s): Obstetric history: This is her 2nd . vag delivery with 1st She's had care with me since the first trimester. Her blood type is A+, antibodies negative, rubella immune, Hepatitis B-, GBS negative, HIV nonreactive. History of Any Multi-Drug Resistant Organisms: None Reported Past Surgical History: Back Surgery, Section, Orthopedic Surgery Additional Past Surgical History / Comment(s): tumor removed from left leg 2011.-. CYST REMOVED FROM RT WRIST X 2. L5 S1 back surgery Past Anesthesia/Blood Transfusion Reactions: No Reported Reaction Additional Past Anesthesia/Blood Transfusion Reaction / Comment(s): "With last Section temperature dropped to 95". Past Psychological History: No Psychological Hx Reported Smoking Status: Never smoker Past Alcohol Use History: Rare Past Drug Use History: None Reported - Past Family History Mother Family Medical History: Cancer, Diabetes Mellitus Additional Family Medical History / Comment(s): PPH mother and great grandmother. Colon and cervical cancer. General Exam Limitations: no limitations General appearance: alert, in no apparent distress Head exam: Present: atraumatic, normocephalic, normal inspection Eye exam: Present: normal appearance, PERRL, EOMI. Absent: scleral icterus, conjunctival injection, periorbital swelling Neck exam: Present: normal inspection, full ROM. Absent: tenderness, meningismus, lymphadenopathy Respiratory exam: Present: normal lung sounds bilaterally. Absent: respiratory distress, wheezes, rales, rhonchi, stridor Cardiovascular Exam: Present: regular rate, normal rhythm, normal heart sounds. Absent: systolic murmur, diastolic murmur, rubs, gallop, clicks Neurological exam: Present: alert, oriented X3, CN II-XII intact Psychiatric exam: Present: normal affect, normal mood Skin exam: Present: warm, dry, intact, normal color. Absent: rash Course Vital Signs 07/02/24 07/02/24 11:29 14:47 Temperature 98.4 F Pulse Rate 77 Respiratory 20 Rate Blood Pressure 129/84 111/75 O2 Sat by Pulse 100 98 Oximetry Medical Decision Making - Medical Decision Making This is a 33-year-old female who presents to the emergency department for a headache. Was pt. sent in by a medical professional or institution? @ -No Did you speak to anyone other than the patient for history? @ -No Did you review nursing and triage notes? @ -Yes, and I agree, it is accurate with regards to the patient's symptoms. Were old charts reviewed? @ -No Differential Diagnosis? @ -Differential Headache: Migraine, tension, cluster, carbon monoxide, central venous thrombosis, pension karma temporal arteritis, acute closure glaucoma, intercranial hemorrhage, mastoiditis, sinusitis, head injury, this is not meant to be an all-inclusive list. EKG interpreted by me (3pts min.)? @ -Not obtained X-rays interpreted by me (1pt min.)? @ -Not obtained CT interpreted by me (1pt min.)? @ -Not obtained U/S interpreted by me (1pt. min.)? @ -Not obtained What testing was considered but not performed? (CT, X-rays, U/S, labs)? Why? @ -CT scan of the brain, however patient declined. What meds were considered but not given? Why? @ -None Did you discuss the management of the patient with other professionals? @ -No Did you reconcile home meds? @ -No Was smoking cessation discussed for >3mins.? @ -No Was critical care preformed (if so, how long)? @ -No Were there social determinants of health that impacted care today? How? (Homelessness, low income, unemployed, alcoholism, drug addiction, transportation, low edu. Level, literacy, decrease access to med. care, longterm, rehab)? @ -No Was there de-escalation of care discussed even if they declined? (Discuss DNR or withdrawal of care, Hospice)? @ -No What co-morbidities impacted this encounter? (DM, HTN, Smoking, COPD, CAD, Cancer, CVA, Hep., AIDS, mental health diagnosis, sleep apnea, morbid obesity)? @ -None Was patient admitted / discharged? @ -Discharged. Lab work unremarkable. Patient was treated with a migraine cocktail consisting of IV fluids, Toradol, Decadron, Benadryl, and Zofran. She had significant relief in symptoms afterwards. We discussed a CT scan of the brain given that symptoms were different from her previous headaches, however she declined. She advised that she was very tight in the neck area and believed that to be the main cause of her symptoms. While she had some tightness in the neck, she retained full range of motion. She had no meningismus or meningeal signs. She does not like how muscle relaxers make her feel and requested to avoid those. Prescription for Toradol and Zofran provided for additional symptomatic management. Otherwise advised follow-up with her PCP. Patient discharged home in stable condition. Case discussed with ED attending Dr. Estrada. Return precautions reviewed in depth, the patient is instructed to return to the emergency department with any new, worsening, or concerning symptoms. Patient verbalized understanding. Undiagnosed new problem with uncertain prognosis? @ -None Drug Therapy requiring intensive monitoring for toxicity (Heparin, Nitro, Insulin, Cardizem)? @ -None Were any procedures done? @ -None Diagnosis/symptom? @ -Headache, muscle tightness Acute, or Chronic, or Acute on Chronic? @ -Acute Uncomplicated (without systemic symptoms) or Complicated (systemic symptoms)? @ -Uncomplicated Side effects of treatment? @ -None Exacerbation, Progression, or Severe Exacerbation] @ -Not applicable Poses a threat to life or bodily function? @ -No - Lab Data Result diagrams: 07/02/24 12:05 07/02/24 13:33 Lab Results 07/02/24 07/02/24 07/02/24 Range/Units 11:49 12:05 13:33 WBC 6.1 (3.8-10.6) k/uL RBC 5.30 (3.80-5.40) m/uL Hgb 15.2 (11.4-16.0) gm/dL Hct 46.1 H (34.0-46.0) % MCV 87.0 (80.0-100.0) fL MCH 28.7 (25.0-35.0) pg MCHC 33.0 (31.0-37.0) g/dL RDW 13.1 (11.5-15.5) % Plt Count 234 (150-450) k/uL MPV 7.9 Neutrophils % 57 % Lymphocytes % 35 % Monocytes % 4 % Eosinophils % 1 % Basophils % 1 % Neutrophils # 3.5 (1.3-7.7) k/uL Lymphocytes # 2.1 (1.0-4.8) k/uL Monocytes # 0.2 (0-1.0) k/uL Eosinophils # 0.1 (0-0.7) k/uL Basophils # 0.1 (0-0.2) k/uL Sodium 140 (137-145) mmol/L Potassium 4.2 (3.5-5.1) mmol/L Chloride 109 H (98-107) mmol/L Carbon Dioxide 24 (22-30) mmol/L Anion Gap 7 mmol/L BUN 11 (7-17) mg/dL Creatinine 0.64 (0.52-1.04) mg/dL Est GFR (CKD-EPI)AfAm >90 (>60 ml/min/1.73 sqM) Est GFR (CKD-EPI)NonAf >90 (>60 ml/min/1.73 sqM) Glucose 99 (74-99) mg/dL Calcium 8.5 (8.4-10.2) mg/dL Magnesium 2.2 (1.6-2.3) mg/dL Total Bilirubin 0.7 (0.2-1.3) mg/dL AST 23 (14-36) U/L ALT 16 (4-34) U/L Alkaline Phosphatase 43 (38-126) U/L C-Reactive Protein 0.6 (<1.0) mg/dL Total Protein 6.8 (6.3-8.2) g/dL Albumin 3.7 (3.5-5.0) g/dL Urine HCG, Qual Not Detected (Not Detectd) Disposition Clinical Impression: Headache, Muscle tightness Disposition: HOME SELF-CARE Instructions (If sedation given, give patient instructions): Acute Headache (ED) Additional Instructions: Return to the emergency department with any new, worsening, or concerning symptoms. Take the Toradol with Tylenol as needed for pain relief. If you choose to take the Toradol, do not take any other anti-inflammatories such as ibuprofen, take one or the other. Take the Zofran up to every 8 hours as needed for nausea and vomiting. Follow up with your primary care provider in 1-2 days. Prescriptions: Ketorolac [Toradol] 10 mg PO Q6HR PRN #15 tab PRN Reason: Pain Ondansetron Odt [Zofran Odt] 4 mg PO Q8HR PRN #15 tab PRN Reason: Nausea And Vomiting Is patient prescribed a controlled substance at d/c from ED?: No Referrals: Liane Mckeon MD [Primary Care Provider] - 1-2 days Time of Disposition: 14:34
[2024-07-02] MEDS: PROCHLORPERAZINE INJ 10 MG/2 ML VIAL IVP STA (12:18)
[2024-07-02 12:20] LABS: Basophils # (A) 0.1 k/uL (0-0.2); Basophils % (A) 1 %; Eosinophils # (A) 0.1 k/uL (0-0.7); Eosinophils % (A) 1 %; HCT 46.1 % (34.0-46.0); HGB 15.2 gm/dL (11.4-16.0); Lymphocytes # (A) 2.1 k/uL (1.0-4.8); Lymphocytes % (A) 35 %; MCH 28.7 pg (25.0-35.0); Mean Platelet Volume 7.9; Monocytes # (A) 0.2 k/uL (0-1.0); Monocytes % (A) 4 %; Neutrophils # (A) 3.5 k/uL (1.3-7.7); Neutrophils % (A) 57 %; Platelet Count 234 k/uL (150-450); RDW 13.1 % (11.5-15.5); WBC 6.1 k/uL (3.8-10.6)
[2024-07-02] MEDS: SODIUM CHLORIDE 0.9% 1,000 ML IV STA (12:28)
[2024-07-02] MEDS: ONDANSETRON 4 MG/2 ML VIAL IVP STA (12:29)
[2024-07-02] MEDS: DEXAMETHASONE SOD PHOSPHATE 10 MG/ML 1 ML VIAL IVP STA (12:29)
[2024-07-02] MEDS: diphenhydrAMINE 50 MG/ML 1 ML VIAL IVP STA (12:29)
[2024-07-02] MEDS: KETOROLAC 15 MG/ML 1 ML VIAL IVP STA ×3 (13:42→14:47)
[2024-07-02 13:55] LABS: ALT 16 U/L (4-34); African American GFR (CKD) >90 (>60 ml/min/1.73 sqM); Albumin 3.7 g/dL (3.5-5.0); Anion Gap 7 mmol/L; Blood Urea Nitrogen 11 mg/dL (7-17); C Reactive Protein 0.6 mg/dL (<1.0); Calcium 8.5 mg/dL (8.4-10.2); Carbon Dioxide 24 mmol/L (22-30); Chloride 109 mmol/L (98-107); Glucose 99 mg/dL (74-99); Non-African American GFR(CKD) >90 (>60 ml/min/1.73 sqM); Sodium 140 mmol/L (137-145); Total Bilirubin 0.7 mg/dL (0.2-1.3); Total Protein 6.8 g/dL (6.3-8.2)
[2024-07-02 14:04] LABS: AST 23 U/L (14-36); Alkaline Phosphatase 43 U/L (38-126); Magnesium 2.2 mg/dL (1.6-2.3); Potassium 4.2 mmol/L (3.5-5.1)
[2024-07-02 14:49] VITALS: BP 111/75
== END 2024-07-02 14:49 | disposition home or self-care (01) ==
LOC: EC 11:28
DX: R51.9 Headache, unspecified (principal); Z88.1 Allergy status to other antibiotic agents; Z88.2 Allergy status to sulfonamides; Z88.3 Allergy status to other anti-infective agents; Z88.8 Allergy status to other drugs, medicaments and biological substances
CPT/HCPCS: 36415; 80053; 83735; 85025; 86140; 81025; 99284; 96374; 96375 ×3; 96376; 96361; J1200; J1100; J2405; J1885

== ENCOUNTER 2024-07-26 15:50 | Emergency (ER) | payer BC ==
[2024-07-26 16:00] VITALS: TEMP 98.1
--- NOTE | 2024-07-26 16:38 | ED ---
General Adult HPI - General Chief complaint: Headache Stated complaint: headache, congestion Time Seen by Provider: 07/26/24 16:30 Source: patient, RN notes reviewed Mode of arrival: ambulatory Limitations: no limitations - History of Present Illness Initial comments: 33-year-old female presents to the emergency department for evaluation of headache. Patient states that this has been ongoing for around a month. The pain is circumferential around her head with some spots that are more painful. She states that she gets temporary relief and it comes back. She reports that her hand dry cleaner believes this is hormone related. She has made some adjus tments to her control because of this. She has not had any relief since then. She states that she only gets relief with Nurtec. She also reports that her insurance does not cover Nurtec. Admits to photophobia, phonophobia. Also notes pressure in her ears and feeling her heartbeat in her ears. Denies fever, chills. - Related Data Home Medications Medication Instructions Recorded Confirmed Wzs-Uvza-Vjley Acid 1 cap PO DAILY 09/11/17 12/08/22 [-U Capsule (formulary)] Omeprazole 20 mg PO BID PRN 12/08/22 12/08/22 Previous Rx's Medication Instructions Recorded Ibuprofen [Motrin] 600 mg PO Q6H #60 tab 12/14/22 Ketorolac [Toradol] 10 mg PO Q6HR PRN #15 tab 07/02/24 Ondansetron Odt [Zofran Odt] 4 mg PO Q8HR PRN #15 tab 07/02/24 Allergies Allergy/AdvReac Type Severity Reaction Status Date / Time clarithromycin [From Biaxin] Allergy Rash/Hives Verified 07/26/24 16:00 fluconazole [From Diflucan] Allergy Rash/Hives Verified 07/26/24 16:00 pseudoephedrine Allergy Rash/Hives Verified 07/26/24 16:00 [From Sudafed] Sulfa (Sulfonamide Allergy Rash/Hives Verified 07/26/24 16:00 Antibiotics) sulfamethoxazole Allergy Rash/Hives Verified 07/26/24 16:00 [From Bactrim] trimethoprim [From Bactrim] Allergy Rash/Hives Verified 07/26/24 16:00 Review of Systems ROS Statement: Those systems with pertinent positive or pertinent negative responses have been documented in the HPI. ROS Other: All systems not noted in ROS Statement are negative. Past Medical History Past Medical History: Asthma Additional Past Medical History / Comment(s): Obstetric history: This is her 2nd . vag delivery with 1st She's had care with me since the first trimester. Her blood type is A+, antibodies negative, rubella immune, Hepatitis B-, GBS negative, HIV nonreactive. History of Any Multi-Drug Resistant Organisms: None Reported Past Surgical History: Back Surgery, Section, Orthopedic Surgery Additional Past Surgical History / Comment(s): tumor removed from left leg 2011.-. CYST REMOVED FROM RT WRIST X 2. L5 S1 back surgery Past Anesthesia/Blood Transfusion Reactions: No Reported Reaction Additional Past Anesthesia/Blood Transfusion Reaction / Comment(s): "With last Section temperature dropped to 95". Past Psychological History: No Psychological Hx Reported Smoking Status: Never smoker Past Alcohol Use History: Rare Past Drug Use History: None Reported - Past Family History Mother Family Medical History: Cancer, Diabetes Mellitus Additional Family Medical History / Comment(s): PPH mother and great grandmother. Colon and cervical cancer. General Exam Limitations: no limitations General appearance: alert, in no apparent distress Head exam: Present: atraumatic, normocephalic, normal inspection Eye exam: Present: normal appearance, PERRL, EOMI. Absent: scleral icterus, conjunctival injection, periorbital swelling ENT exam: Present: normal exam, mucous membranes moist, TM's normal bilaterally, normal external ear exam Neck exam: Present: normal inspection, full ROM. Absent: tenderness, meningismus, lymphadenopathy Respiratory exam: Present: normal lung sounds bilaterally. Absent: respiratory distress, wheezes, rales, rhonchi, stridor Cardiovascular Exam: Present: regular rate, normal rhythm, normal heart sounds. Absent: systolic murmur, diastolic murmur, rubs, gallop, clicks Extremities exam: Present: normal inspection, full ROM, normal capillary refill. Absent: tenderness, pedal edema, joint swelling, calf tenderness Neurological exam: Present: alert, oriented X3, CN II-XII intact Psychiatric exam: Present: normal affect, normal mood Skin exam: Present: warm, dry, intact, normal color. Absent: rash Course Vital Signs 07/26/24 15:58 Temperature 98.1 F Pulse Rate 96 Respiratory 18 Rate Blood Pressure 144/85 O2 Sat by Pulse 100 Oximetry Medical Decision Making - Medical Decision Making Was pt. sent in by a medical professional or institution (MAHI Fierro, CLINICAL SUPPORT SPECIALIST, urgent care, hospital, or long term...) When possible be specific @ -[No] Did you speak to anyone other than the patient for history (EMS, parent, family, police, friend...)? What history was obtained from this source @ -[No] Did you review nursing and triage notes (agree or disagree)? Why? @ -[I reviewed and agree with nursing and triage notes] Were old charts reviewed (outside hosp., previous admission, EMS record, old EKG, old radiological studies, urgent care reports/EKG's, long term records)? Report findings @ -[No old charts were reviewed] Differential Diagnosis (chest pain, altered mental status, abdominal pain women, abdominal pain men, vaginal bleeding, weakness, fever, dyspnea, syncope, headache, dizziness, GI bleed, back pain, seizure, CVA, palpatations, mental health, musculoskeletal)? @ -[Differential Headache: Migraine, tension, cluster, carbon monoxide, central venous thrombosis, pension karma temporal arteritis, acute closure glaucoma, intercranial hemorrhage, mastoiditis, sinusitis, head injury, this is not meant to be an all-inclusive list. ] EKG interpreted by me (3pts min.). @ -EKG at 1803 shows sinus rhythm rate 73, NM 164, QRS 76, QTQTc 365/391 X-rays interpreted by me (1pt min.). @ -[None done] CT interpreted by me (1pt min.). @ -[CT brain] U/S interpreted by me (1pt. min.). @ -[None done] What testing was considered but not performed or refused? (CT, X-rays, U/S, la bs)? Why? @ -[None] What meds were considered but not given or refused? Why? @ -[None] Did you discuss the management of the patient with other professionals (professionals i.e. MAHI Fierro, CLINICAL SUPPORT SPECIALIST, lab, RT, psych nurse, social service agency director, trial lawyer, teacher, air crew officer, medical case worker)? Give summary @ -[No] Was smoking cessation discussed for >3mins.? @ -[No] Was critical care preformed (if so, how long)? @ -[No] Were there social determinants of health that impacted care today? How? (Homelessness, low income, unemployed, alcoholism, drug addiction, transportation, low edu. Level, literacy, decrease access to med. care, fpc, rehab)? @ -[No] Was there de-escalation of care discussed even if they declined (Discuss DNR or withdrawal of care, Hospice)? DNR status @ -[No] What co-morbidities impacted this encounter? (DM, HTN, Smoking, COPD, CAD, Cancer, CVA, ARF, Chemo, Hep., AIDS, mental health diagnosis, sleep apnea, morbid obesity)? @ -[None] Was patient admitted / discharged? Hospital course, mention meds given and route, prescriptions, significant lab abnormalities, going to OR and other pertinent info. @ -[Patient presented emergency department for evaluation of headache. An IV was started and patient was provided a migraine cocktail. Laboratory studies obtained. CT brain ] Undiagnosed new problem with uncertain prognosis? @ -[No] Drug Therapy requiring intensive monitoring for toxicity (Heparin, Nitro, Insulin, Cardizem)? @ -[No] Were any procedures done? @ -[No] Diagnosis/symptom? @ -[default] Acute, or Chronic, or Acute on Chronic? @ -[default] Uncomplicated (without systemic symptoms) or Complicated (systemic symptoms)? @ -[default] Side effects of treatment? @ -[No] Exacerbation, Progression, or Severe Exacerbation? @ -[No] Poses a threat to life or bodily function? How? (Chest pain, [place], [place], pneumonia, PE, COPD, DKA, ARF, appy, cholecystitis, CVA, Diverticulitis, Homicidal, Suicidal, threat to staff... and all critical care pts) @ -[No] - Lab Data Result diagrams: 07/26/24 18:41 07/26/24 18:41 Lab Results 07/26/24 07/26/24 07/26/24 Range/Units 18:10 18:41 18:41 WBC 7.9 (3.8-10.6) k/uL RBC 5.09 (3.80-5.40) m/uL Hgb 14.0 (11.4-16.0) gm/dL Hct 43.9 (34.0-46.0) % MCV 86.2 (80.0-100.0) fL MCH 27.4 (25.0-35.0) pg MCHC 31.8 (31.0-37.0) g/dL RDW 12.9 (11.5-15.5) % Plt Count 246 (150-450) k/uL MPV 8.1 Neutrophils % 58 % Lymphocytes % 36 % Monocytes % 3 % Eosinophils % 1 % Basophils % 1 % Neutrophils # 4.6 (1.3-7.7) k/uL Lymphocytes # 2.8 (1.0-4.8) k/uL Monocytes # 0.2 (0-1.0) k/uL Eosinophils # 0.1 (0-0.7) k/uL Basophils # 0.0 (0-0.2) k/uL Sodium 138 (137-145) mmol/L Potassium 3.8 (3.5-5.1) mmol/L Chloride 104 (98-107) mmol/L Carbon Dioxide 22 (22-30) mmol/L Anion Gap 12 mmol/L BUN 12 (7-17) mg/dL Creatinine 0.73 (0.52-1.04) mg/dL Est GFR (CKD-EPI)AfAm >90 (>60 ml/min/1.73 sqM) Est GFR (CKD-EPI)NonAf >90 (>60 ml/min/1.73 sqM) Glucose 86 (74-99) mg/dL Calcium 9.1 (8.4-10.2) mg/dL Total Bilirubin 0.4 (0.2-1.3) mg/dL AST 23 (14-36) U/L ALT 14 (4-34) U/L Alkaline Phosphatase 57 (38-126) U/L Total Protein 7.4 (6.3-8.2) g/dL Albumin 4.3 (3.5-5.0) g/dL Urine HCG, Qual Not Detected (Not Detectd) Disposition Clinical Impression: Migraine Condition: Stable Instructions (If sedation given, give patient instructions): Acute Headache (ED) Additional Instructions: Please follow up with your primary care provider. Return to the emergency department for new or worsening symptoms. Is patient prescribed a controlled substance at d/c from ED?: No Referrals: Liane Mckeon MD [Primary Care Provider] - 1-2 days
[2024-07-26] MEDS: METOCLOPRAMIDE 5 MG/ML 2 ML VIAL IVP STA (18:32)
[2024-07-26] MEDS: diphenhydrAMINE 50 MG/ML 1 ML VIAL IVP STA (18:33)
[2024-07-26] MEDS: KETOROLAC 15 MG/ML 1 ML VIAL IVP STA (18:33)
[2024-07-26 19:01] LABS: Basophils % (A) 1 %; Eosinophils # (A) 0.1 k/uL (0-0.7); Eosinophils % (A) 1 %; HCT 43.9 % (34.0-46.0); Lymphocytes # (A) 2.8 k/uL (1.0-4.8); Lymphocytes % (A) 36 %; MCH 27.4 pg (25.0-35.0); MCHC 31.8 g/dL (31.0-37.0); MCV 86.2 fL (80.0-100.0); Mean Platelet Volume 8.1; Monocytes # (A) 0.2 k/uL (0-1.0); Monocytes % (A) 3 %; Neutrophils # (A) 4.6 k/uL (1.3-7.7); Neutrophils % (A) 58 %; Platelet Count 246 k/uL (150-450); RBC 5.09 m/uL (3.80-5.40); RDW 12.9 % (11.5-15.5); WBC 7.9 k/uL (3.8-10.6)
[2024-07-26 19:39] LABS: ALT 14 U/L (4-34); AST 23 U/L (14-36); African American GFR (CKD) >90 (>60 ml/min/1.73 sqM); Albumin 4.3 g/dL (3.5-5.0); Alkaline Phosphatase 57 U/L (38-126); Anion Gap 12 mmol/L; Blood Urea Nitrogen 12 mg/dL (7-17); Calcium 9.1 mg/dL (8.4-10.2); Carbon Dioxide 22 mmol/L (22-30); Chloride 104 mmol/L (98-107); Glucose 86 mg/dL (74-99); Non-African American GFR(CKD) >90 (>60 ml/min/1.73 sqM); Potassium 3.8 mmol/L (3.5-5.1); Sodium 138 mmol/L (137-145); Total Bilirubin 0.4 mg/dL (0.2-1.3); Total Protein 7.4 g/dL (6.3-8.2)
--- NOTE | 2024-07-26 19:55 | CT ---
EXAMINATION TYPE: CT brain wo con CT DLP: 1064.3 mGycm, Automated exposure control for dose reduction was used. DATE OF EXAM: 07/26/2024 7:50 PM COMPARISON: None. CLINICAL INDICATION:Female, 33 years old with history of headache, Pt presents to ED for migraine, ea r pain, and jaw pain ongoing for the past month. TECHNIQUE: Brain: Multiple axial CT images of the brain were obtained without IV contrast. . Coronal and sagitta l reformats reviewed. FINDINGS: Brain: Extra-axial spaces: No abnormal extra-axial fluid collections. Ventricular system: Within normal limits Cerebral parenchyma: No acute intraparenchymal hemorrhage or mass effect. The rahman-white junction is well differentiated. Cerebellum: Unremarkable. Mass effect: No evidence of midline shift. Intracranial vasculature: unremarkable Soft tissues: Normal. Calvarium/osseous structures: No depressed skull fracture. Paranasal sinuses and mastoid air cells: Clear Visualized orbits: Orbital contents are intact. IMPRESSION: No acute intracranial process. [facility], , 07/26/2024 7:53 PM
[2024-07-26] MEDS: SODIUM CHLORIDE 0.9% 1,000 ML IV ONE (20:25)
[2024-07-26] MEDS: BUTALB/APAP/CAFF 50-325-40MG TAB PO STA (20:25)
[2024-07-26 20:59] VITALS: BP 115/78; PULSE 79; RESP 16
== END 2024-07-26 20:58 ==
LOC: EC 15:50
DX: G43.909 Migraine, unspecified, not intractable, without status migrainosus (principal); Z88.1 Allergy status to other antibiotic agents; Z88.2 Allergy status to sulfonamides; Z88.3 Allergy status to other anti-infective agents; Z88.8 Allergy status to other drugs, medicaments and biological substances
CPT/HCPCS: 36415; 93005; 80053; 85025; 81025; 70450; 99284; 96374; 96375 ×2; 96361; J1200; J2765; J1885